=== PATIENT | male | born 1950 | race Caucasian/White ===

== ENCOUNTER 2019-03-25 21:34 | Inpatient (IN) | payer MEDICARE, OTHER ==
--- NOTE | 2019-03-25 21:56 | RAD ---
Exam: Chest one view: HISTORY: Dyspnea, congestive heart failure, respiratory distress COMPARISON: 03/25/2019, 7:42 PM study. There is again noted be cardiomegaly with extensive bilateral interstitial and alveolar opacity wright es throughout both lungs. Findings are certainly consistent with that of a bilateral pneumonia and/or asymmetric pulmonary edema. IMPRESSION: Extensive bilateral interstitial and alveolar opacity changes evidence for bilateral pneumonia and/or asymmetric pulmonary edema. Stable from earlier study this evening. Minimal cardiomegaly. Continued short-term follow-up
[2019-03-25] MEDS ORDERED: Furosemide 40 MG/4 ML VIAL ONE (22:10)
[2019-03-25 22:45] LABS: Alcohol Less than 10 mg/dL (Less than 10); Salicylate Less than 8.0 mg/dL (15.0-30.0)
[2019-03-26 00:04] LABS: Troponin I 1.424 ng/mL (< 0.028)
[2019-03-26] MEDS ORDERED: Ondansetron PF 4 MG/2 ML Vial IVP PRN (00:14)
[2019-03-26] MEDS ORDERED: Ondansetron ODT 4 MG TAB SL PRN (00:14)
[2019-03-26] MEDS ORDERED: Acetaminophen 325 MG TAB PO PRN ×2 (00:14→00:28)
[2019-03-26] MEDS ORDERED: Bisacodyl 10 MG SUPP PR PRN (00:28)
[2019-03-26] MEDS ORDERED: Guaifenesin DM 100-10/5 ML UDCUP PO PRN (00:28)
[2019-03-26] MEDS ORDERED: Senokot S 8.6-50 MG TAB PO PRN (00:28)
[2019-03-26] MEDS ORDERED: Azithromycin 500 MG in Sodium Chloride 0.9% 250 ML 250 ML IVPB SCH (01:00)
[2019-03-26 01:26] LABS: #Lymphocytes 0.6 thou/uL (1.20-3.40); #Monocytes 0.5 thou/uL (0.11-0.59); #Neutrophils 15.7 thou/uL (1.40-6.50); %Basophils 0.3 % (0.0-1.0); %Eosinophils 0.1 % (0.0-10.0); %Lymphocytes 3.3 % (21.0-51.0); %Monocytes 2.7 % (0.0-10.0); %Neutrophils 93.6 % (42.0-75.0); Hemoglobin 12.4 g/dL (14.0-18.0); Mean Corpuscular HGB CONC 33.1 g/dL (32.0-36.0); Mean Corpuscular Hemoglobin 31.3 pg (27.0-31.0); Mean Corpuscular Volume 94.7 fL (78.0-98.0); Mean Platelet Volume 6.4 fL (7.4-10.4); Platelet Count 454 thou/uL (130-400); RBC Distribution Width 11.9 % (11.5-14.5); Red Blood Cell (RBC) Count 3.94 mill/uL (4.70-6.10); White Blood Cell (WBC) Count 16.8 thou/uL (4.8-10.8)
[2019-03-26 01:54] LABS: Anion Gap 16 mmol/L (10-20); BUN (Urea Nitrogen) 11 mg/dL (8.4-25.7); Calc. Creatinine Clearance 85 mL/min (70-130); Calcium 8.9 mg/dL (7.8-10.44); Carbon Dioxide 20 mmol/L (23-31); Cardiac Risk 4.5 (Less than 4.5); Chloride 103 mmol/L (98-107); Cholesterol 109 mg/dl (< 200 Desired); Estimated GFR-MDRD 74; Glucose 134 mg/dL (80-115); HDL Cholesterol 24 mg/dL (>60 Neg Risk); LDL Cholesterol, Calculated 70 mg/dL; Potassium 3.8 mmol/L (3.5-5.1); Sodium 135 mmol/L (136-145); Triglycerides 74 mg/dL (Less than 150)
[2019-03-26 01:56] LABS: Troponin I 2.991 ng/mL (< 0.028)
--- NOTE | 2019-03-26 04:05 | HP ---
REASON FOR ADMISSION: Acute respiratory failure with hypoxia, new onset CHF exacerbation, pneumonia, sepsis. HISTORY OF PRESENTING ILLNESS: Patient gives history of cough with clear expectoration from last 2 weeks. This got worse with severe shortness of breath from last 4 hours prior to arrival to the ER. He apparently became blue at home due to severe coughing spells and shortness of breath. The patient had gone for camping at [place] and was living in a cabin for four days, came back yesterday afternoon. He had gone fishing. He had a followup appointment that was set up to see Dr. Spencer on Thursday and patient was awaiting to see him then. The mentions that patient is adamant about going and seeing his primary care doctor earlier. Had some chest pressure as well when the shortness of breath came on. He says that his shortness of breath is coming on with minimal exertion, even to ambulate inside the room now. On arrival here, patient was saturating at 54% on room air and had to be placed on BiPAP. Initial x-ray showed florid pulmonary vascular congestion and possible pneumonia on his x-ray. He had a fever of 100.9 degrees on arrival. 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 No prior history of either acute DC or heart failure per patient. PAST MEDICAL AND SURGICAL HISTORY: Coronary artery disease, prior CABG done in [place] in 2006, carotid endarterectomy, dyslipidemia, hypertension, and appendectomy. CURRENT MEDICATIONS: 1. Atenolol 25 mg p.o. q.p.m. 2. Aggrenox 25/200 mg one capsule twice daily. 3. Atorvastatin 80 mg p.o. q.p.m. 4. Zetia 10 mg p.o. q.p.m. 5. Multivitamin one tablet once daily. 6. Fish oil 1000 mg q.a.m. 7. Ambien 10 mg p.r.n. at bedtime. ALLERGIES: NO KNOWN DRUG ALLERGIES. PERSONAL HISTORY: Quit smoking in 2006, prior to which had smoked 2 packs a day for nearly 40 years. Drinks six packs of beers daily. Does not abuse drugs. Lives with his . FAMILY HISTORY: Mother at the age of 78 from natural causes. Father at the age of 57 years. He has had history of coronary artery disease. CODE STATUS: Full. Power of corporate attorney is his . REVIEW OF SYSTEMS: CONSTITUTIONAL: Negative for weight loss or gain, ability to conduct usual activities. SKIN: Negative for rash, itching. EYES: Negative for double vision, pain. ENT/MOUTH: Negative for nose bleeding, neck stiffness, pain, tenderness. CARDIOVASCULAR: Negative for palpitations, dyspnea on exertion, orthopnea. RESPIRATORY: Negative for shortness of breath, wheezing, cough, hemoptysis, fever or night sweats. GASTROINTESTINAL: Negative for poor appetite, abdominal pain, heartburn, nausea , vomiting, constipation, or diarrhea. GENITOURINARY: Negative for urgency, frequency, dysuria, nocturia. MUSCULOSKELETAL: Negative for pain, swelling. NEUROLOGIC/PSYCHIATRIC: Negative for anxiety, depression. ALLERGY/IMMUNOLOGIC: Negative for skin rash, bleeding tendency. Please see short and difficult for urgency, frequency, dysuria, nocturia. PHYSICAL EXAMINATION: GENERAL: Patient is a 69-year-old male, who is currently in [id number] respiratory distress, on BiPAP. VITAL SIGNS: Blood pressure 148/96; pulse 98 per minute; respiratory rate 26 per minute; temperature 100.9 degrees Fahrenheit; and saturating 95% on BiPAP, was 54% on room air earlier. NECK: He has elevated JVD. HEENT: Eyes; extraocular muscles intact. Pupils reacting to light. Oral cavity, mucous membranes are dry. No exudates or congestion. CARDIOVASCULAR SYSTEM: S1, S2 heard. RESPIRATORY SYSTEM: Air entry 1+ bilateral. Rales plus bilateral. Rhonchi plus bilateral. ABDOMEN: Soft. Bowel sounds heard. No tenderness, rigidity, or guarding. EXTREMITIES: There is 1+ peripheral edema. No calf tenderness. VASCULAR SYSTEM: Peripheral pulses 1+ bilateral. No ischemic ulcerations or gangrene. CENTRAL NERVOUS SYSTEM: No gross focal deficits noted. Patient is alert, awake , oriented, well. PSYCHIATRIC SYSTEM: Patient is a bit anxious, otherwise no hallucinations or delusions. LABORATORY DATA: White count of 16, H and H 12 and 37, platelet count 454, and MCV is 94 with 93% neutrophils. BUN 11, creatinine 1.0, and serum glucose 134. Troponin I peaking up to 2.99. LDL of 70. Chest x-ray done, shows extensive bilateral interstitial and alveolar opacities, possible bilateral pneumonia, worse on left side. Lactic acid 3.8, a repeat was 1.3. Initial BNP was 688. Albumin 3.3. EKG done, shows normal sinus rhythm at 115 beats per minute. There is questionable Q-wave seen in septal and anterior wall leads. CLINICAL IMPRESSION AND PLAN: Patient will be admitted to [facility] for acute new onset congestive heart failure exacerbation, sepsis with likely pneumonia, possible chronic obstructive pulmonary disease exacerbation with prior history of heavy smoking which he quit in 2006. Blood cultures have been obtained in the ER. He will be on Zithromax and ceftriaxone. We will also give him Lasix a total of four doses. We will place him on Coreg 3.125 mg twice daily and lisinopril 2.5 mg daily. Echo with 2D Doppler for LV function. We will continue his Lipitor, Zetia, Aggrenox, and fish oil as before. Cardiology consultation with Dr. Baker is on-call and Pulmonary consultation with Dr. Murguia will be obtained. He will be on clear liquid diet for now. Code status was discussed with him and he is a full code. We will continue to closely monitor him in [facility]. Job ID: [id number] MTDD
[2019-03-26] MEDS: Furosemide 40 MG/4 ML VIAL SLOW IVP SCH ×2 (06:19→13:59)
[2019-03-26] MEDS ORDERED: Enoxaparin Sodium 40 MG/0.4 ML SYRINGE SC SCH (09:00)
[2019-03-26] MEDS ORDERED: Prevnar 13-Val Conj/PF 0.5 ML SYRINGE IM ONE (09:00)
[2019-03-26] MEDS: Lisinopril 2.5 MG TAB PO SCH (10:30)
[2019-03-26] MEDS: Multivitamin W/ Minerals 1 TAB PO SCH (10:31)
[2019-03-26] MEDS: Fish Oil 1,000 MG CAP PO SCH (10:31)
[2019-03-26] MEDS: Carvedilol 3.125 MG TAB PO SCH ×2 (10:31→20:44)
[2019-03-26] MEDS: Aggrenox 200-25mg CAP PO SCH ×2 (10:31→20:44)
[2019-03-26] MEDS: Cefepime 2 GM in Sodium Chloride 0.9% 100 ML IVPB SCH ×2 (10:31→23:25)
[2019-03-26] MEDS: Famotidine 20 MG TAB PO SCH ×2 (10:31→20:45)
[2019-03-26] MEDS ORDERED: Enoxaparin Sodium 100 MG/ML SYRINGE SC SCH (10:45)
[2019-03-26] MEDS: methylPREDNISolone Sod Succ 40 MG VIAL IVP SCH ×3 (13:59→23:25)
--- NOTE | 2019-03-26 16:45 | PDOC.PN ---
- Subjective Encounter Start Date: 03/26/19 Encounter Start Time: 10:15 Subjective: pt up in bed appears sob - Objective Resuscitation Status - Order Detail: 03/26/19 00:22 Resuscitation Status Routine Resuscitation Status: FULL: Full Resuscitation Vital Signs & Weight: Vital Signs (12 hours) Temp Pulse BP Pulse Ox 03/26/19 15:19 98.1 F 03/26/19 14:48 92 L 03/26/19 11:17 97.2 F L 03/26/19 10:30 86 130/75 03/26/19 08:30 95 03/26/19 07:19 97.8 F Weight Admit Weight 192 lb 4 oz Weight 190 lb 6 oz Most Recent Monitor Data Heart Rate from ECG 79 NIBP 113/63 NIBP BP-Mean 79 Respiration from ECG 25 SpO2 90 I&O: 03/25/19 03/26/19 03/27/19 06:59 06:59 06:59 Intake Total 174 Output Total 740 Balance -566 Result Diagrams: 03/26/19 01:17 03/26/19 01:17 Phys Exam - Physical Examination Neck: no nodes, no JVD, supple, full ROM Respiratory: no wheezing, no rales, no rhonchi, wheezing present, clear to auscultation bilateral Cardiovascular: RRR, no significant murmur, no rub, gallop, irregular Gastrointestinal: soft, non-tender, no distention, positive bowel sounds Dx/Plan (1) SOB (shortness of breath) Code(s): R06.02 - SHORTNESS OF BREATH Status: Acute (2) Prolonged QT interval Code(s): R94.31 - ABNORMAL ELECTROCARDIOGRAM [ECG] [EKG] Status: Acute (3) Elevated troponin Code(s): R74.8 - ABNORMAL LEVELS OF OTHER SERUM ENZYMES Status: Acute - Plan pt on abx, will discontinue azithromycin pt's qtc worsening -: will check magnesium and repeat ekg -: will put pt on lovonox and consult cardio -: echo ef of 45-50% no previous echo for comparision * . Review of Systems - Review of Systems Respiratory: negative: Cough, Dry, Shortness of Breath, Hemoptysis, SOB with Excertion, Pleuritic Pain, Sputum, Wheezing Cardiovascular: negative: chest pain, palpitations, orthopnea, paroxysmal nocturnal dyspnea, edema, light headedness, other Gastrointestinal: negative: Nausea, Vomiting, Abdominal Pain, Diarrhea, Constipation, Melena, Hematochezia, Other - Medications/Allergies Allergies/Adverse Reactions: Allergies Allergy/AdvReac Type Severity Reaction Status Date / Time No Known Allergies Allergy Verified 05/05/16 10:21 Medications: Current Medications Acetaminophen (Tylenol) 650 mg PO Q4H PRN PRN Reason: Headache/Fever/Mild Pain (1-3) Atorvastatin Calcium (Lipitor) 80 mg PO QPM [facility] Bisacodyl (Dulcolax) 10 mg [place] DAILYPRN PRN PRN Reason: Constipation Carvedilol (Coreg) 3.125 mg PO BID [facility] Last Admin: 03/26/19 10:31 Dose: 3.125 mg Dipyridamole/Aspirin (Aggrenox) 1 cap PO BID [facility] Last Admin: 03/26/19 10:31 Dose: 1 cap Ezetimibe (Zetia) 10 mg PO QPM [facility] Enoxaparin Sodium (Lovenox) 90 mg SC 0900,2100 [facility] Famotidine (Pepcid) 20 mg PO BID [facility] Last Admin: 03/26/19 10:31 Dose: 20 mg Fish Oil (Fish Oil) 1,000 mg PO QAM [facility] Last Admin: 03/26/19 10:31 Dose: 1,000 mg Furosemide (Lasix) 40 mg SLOW IVP 0600,1400 [facility] Stop: 03/27/19 06:01 Last Admin: 03/26/19 13:59 Dose: 40 mg Guaifenesin/Dextromethorphan (Robitussin Dm) 15 ml PO Q4H PRN PRN Reason: Cough Cefepime HCl 2 gm/ Sodium (Chloride) 100 mls @ 200 mls/hr IVPB 1100,2300 [facility] Last Admin: 03/26/19 10:31 Dose: 100 mls Iron/Minerals/Multivitamins (Theragran M) 1 tab PO QAM [facility] Last Admin: 03/26/19 10:31 Dose: 1 tab Lisinopril (Zestril) 2.5 mg PO DAILY [facility] Last Admin: 03/26/19 10:30 Dose: 2.5 mg Methylprednisolone Sodium Succinate (Solu-Medrol) 40 mg IVP Q6HR [facility] Last Admin: 03/26/19 13:59 Dose: 40 mg Senna/Docusate Sodium (Senokot S) 2 tab PO BID PRN PRN Reason: Constipation Sodium Chloride (Flush - Normal Saline) 10 ml IVF Q12HR [facility] Last Admin: 03/26/19 10:32 Dose: 10 ml Sodium Chloride (Flush - Normal Saline) 10 ml IVF PRN PRN PRN Reason: Saline Flush
--- NOTE | 2019-03-26 18:22 | CON ---
DATE OF CONSULTATION: 03/26/2019 PRIMARY LINUX ADMIN: Júnior Finley MD. REASON FOR CONSULTATION: Heart failure. HISTORY OF PRESENT ILLNESS: Mr. Lewis is a pleasant 69-year-old white gentleman, who comes to the hospital for shortness of breath and cough productive of brownish zarate sputum. He has had subjective fevers as well. He has noticed worsening shortness of breath. He saw Dr. Finley a week before last. He has had him scheduled for an echo and a stress in the next few days. He decided to come into the hospital as his shortness of breath got significantly worse, had a fever of 100.9, so he was admitted for this. Chest x-ray shows large bilateral alveolar infiltrates, which is either pneumonia versus CHF. Cardiology has been consulted for this. PAST MEDICAL HISTORY: 1. History of coronary artery disease with CABG in [facility] in 2006. 2. Peripheral vascular disease with carotid endarterectomy a few years ago with Dr. Enciso. 3. Hyperlipidemia. 4. Hypertension. PAST SURGICAL HISTORY: 1. CABG as above. 2. Carotid endarterectomy. 3. Appendectomy. OUTPATIENT MEDICATIONS: 1. Atenolol 25 mg q.p.m. 2. Aggrenox 25/200 twice a day. 3. Atorvastatin 80 mg q.p.m. 4. Zetia 10 mg q.p.m. 5. Multivitamin daily. 6. Fish oil 1000 mg q.a.m. 7. Ambien 10 mg p.r.n. at bedtime. ALLERGIES: NO KNOWN DRUG ALLERGIES. SOCIAL HISTORY: Quit smoking in 2006 after his bypass, before that, it was 2 packs a day for 40 years. Drinks daily about a 6-pack. No drug use. FAMILY HISTORY: Noncontributory. REVIEW OF SYSTEMS: A 12-point review of systems was done and was all negative unless stated in the history of present illness. PHYSICAL EXAMINATION: VITAL SIGNS: Temperature 97.2, pulse 88, respiratory rate 21, saturating 95% on high-flow oxygen, blood pressure 106/65. GENERAL: Awake, alert, and oriented x3. No distress. HEENT: Normocephalic and atraumatic. NECK: Supple. LUNGS: Clear. CARDIOVASCULAR: S1, S2. No S3 or S4. No murmurs. ABDOMEN: Soft. Positive bowel sounds. EXTREMITIES: No edema. SKIN: Warm and dry. LABORATORY DATA: Laboratory work was reviewed. White count of 16, hemoglobin 12, hematocrit 37, platelet count 454. Chemistry with a sodium of 135, potassium 3.8, BUN 11, creatinine 1, GFR of 74, lactic acid 1.3, calcium is 8.9. Troponin is positive at 1.4, second with 2.9. Cholesterol total of 109, LDL of 70, HDL of 24. Free T4 is 2.89. TSH was 0.22. Echocardiogram was reviewed. EF at about 45% to 50%, which is mildly reduced, but he has diastolic heart failure. ASSESSMENT/PLAN: 1. Acute on chronic systolic and diastolic heart failure, appears significantly improved. 2. Bilateral pulmonary infiltrates suggestive of pneumonia as well. This would be more consistent given his history of fevers and cough productive of grayish sputum. 3. Non-ST elevation myocardial infarction type 2 most likely. 4. Coronary artery disease, status post coronary artery bypass grafting in 2006. PLAN: 1. Agree with continuing diuresis. 2. Would give full anticoagulation given his elevated troponin and history of coronary artery disease. Agree with continue full-dose Lovenox for now. 3. No plan for heart catheterization at this time. He may need one once he is more stable from the pneumonia standpoint. Thank you for letting me to participate in the care of your patient. We will continue to follow. Job ID: [id number]
[2019-03-26] MEDS ORDERED: cefTRIAXone\\ROCEPHIN 1 GM in Sodium Chloride 0.9% 100 ML IVPB SCH (20:00)
[2019-03-26] MEDS: Enoxaparin Sodium 100 MG/ML SYRINGE SC SCH (20:43)
[2019-03-26] MEDS: Ezetimibe 10 MG TAB PO SCH (20:44)
[2019-03-26] MEDS: Atorvastatin Calcium 40 MG TAB PO SCH (20:44)
[2019-03-26] MEDS ORDERED: Enoxaparin Sodium 80 MG/0.8 ML SYRINGE SC SCH (21:00)
[2019-03-27] MEDS: methylPREDNISolone Sod Succ 40 MG VIAL IVP SCH (05:37)
[2019-03-27] MEDS: Furosemide 40 MG/4 ML VIAL SLOW IVP SCH (05:37)
[2019-03-27] MEDS ORDERED: Azithromycin 500 MG in Sodium Chloride 0.9% 250 ML 250 ML IVPB SCH (07:45)
[2019-03-27] MEDS: Carvedilol 3.125 MG TAB PO SCH ×2 (09:57→21:35)
[2019-03-27] MEDS: Aggrenox 200-25mg CAP PO SCH ×2 (09:57→20:09)
[2019-03-27] MEDS: Enoxaparin Sodium 100 MG/ML SYRINGE SC SCH ×2 (09:58→20:07)
[2019-03-27] MEDS: Famotidine 20 MG TAB PO SCH ×2 (09:58→20:09)
[2019-03-27] MEDS: Lisinopril 2.5 MG TAB PO SCH (09:58)
[2019-03-27] MEDS: Fish Oil 1,000 MG CAP PO SCH (09:58)
[2019-03-27] MEDS: Multivitamin W/ Minerals 1 TAB PO SCH (09:58)
--- NOTE | 2019-03-27 10:05 | RAD ---
PORTABLE CHEST: Date: 03/27/19 COMPARISON: 03/25/19 study. HISTORY: Difficulty breathing. FINDINGS: Heart size is enlarged. Postop sternotomy changes are present. Parenchymal lung changes are stable. IMPRESSION: Stable exam. POS: [facility]
--- NOTE | 2019-03-27 10:19 | PRG ---
DATE OF SERVICE: 03/27/2019 SUBJECTIVE: Aniket Lewis is a 69-year-old gentleman. This morning, he is better. X-ray still shows diffuse pulmonary infiltrates, high-flow 30 L. OBJECTIVE: VITAL SIGNS: His sats are like 90%, pulse 86, temperature 97, and blood pressure 130/75. CHEST: Bilateral crackles. CARDIAC: Normal S1-S2. No gallops. ABDOMEN: No masses. IMPRESSION: Respiratory failure, congestive heart failure, and pneumonia. PLAN: Continue antibiotics, neb treatments, and steroids. I will follow. Job ID: [id number]
--- NOTE | 2019-03-27 11:32 | PDOC.CTH ---
Cardiology Progress Note - Subjective No new issues. Still needing high flow oxygen. - Objective Vital Signs Temp Pulse Pulse Pulse BP BP BP 03/27/19 11:04 96.9 F L 03/27/19 10:29 83 87 105/70 118/68 03/27/19 09:58 86 130/75 03/27/19 07:24 96.6 F L 03/27/19 04:00 97.3 F L 03/27/19 02:18 03/26/19 23:31 98.4 F Pulse Ox Pulse Ox Pulse Ox 03/27/19 11:04 03/27/19 10:29 96 87 L 03/27/19 09:58 03/27/19 07:24 03/27/19 04:00 03/27/19 02:18 90 L 03/26/19 23:31 Admit Weight 192 lb 4 oz Weight 187 lb 6 oz 03/26/19 03/27/19 03/28/19 06:59 06:59 06:59 Intake Total 174 1146 Output Total 740 2150 500 Balance -560 -4230 -500 - Physical Examination General/Neuro: alert & oriented x3, NAD Neck: no JVD present Lungs: unlabored respirations Heart: RRR Abdomen: NT/ND Extremities: other: (no edema) - Telemetry Telemetry Rhythm: NSR - Labs Result Diagrams: 03/26/19 01:17 03/26/19 01:17 Troponin/CKMB Troponin I 2.991 ng/mL (< 0.028) H* 03/26/19 01:17 - Assessment/Plan 1. Acute on chornic systolic heart failure. 2. Pneumonia 3. Type 2 IA NSTEMI, demand ischemia 4. CAD 5. CABG in 2006 PLAN: - Abx per primary team - Continue full anticoagulation for a minimum of 48 hrs - Will need further risk stratification once stable from pneumonia standpoint. - Dr. Finley will evaluate tomorrow.
[2019-03-27] MEDS: Cefepime 2 GM in Sodium Chloride 0.9% 100 ML IVPB SCH ×2 (12:54→23:33)
--- NOTE | 2019-03-27 12:56 | PDOC.PN ---
- Subjective Encounter Start Date: 03/27/19 Encounter Start Time: 10:30 Subjective: pt up in chair feels better - Objective Resuscitation Status - Order Detail: 03/26/19 00:22 Resuscitation Status Routine Resuscitation Status: FULL: Full Resuscitation Vital Signs & Weight: Vital Signs (12 hours) Temp Pulse Pulse Pulse BP BP BP 03/27/19 11:04 96.9 F L 03/27/19 10:29 83 87 105/70 118/68 03/27/19 09:58 86 130/75 03/27/19 07:24 96.6 F L 03/27/19 04:00 97.3 F L 03/27/19 02:18 Pulse Ox Pulse Ox Pulse Ox 03/27/19 11:04 03/27/19 10:29 96 87 L 03/27/19 09:58 03/27/19 07:24 03/27/19 04:00 03/27/19 02:18 90 L Weight Admit Weight 192 lb 4 oz Weight 187 lb 6 oz Most Recent Monitor Data Heart Rate from ECG 85 NIBP 91/66 NIBP BP-Mean 74 Respiration from ECG 23 SpO2 91 I&O: 03/26/19 03/27/19 03/28/19 06:59 06:59 06:59 Intake Total 174 1146 Output Total 740 2300 500 Balance -566 -1004 -500 Result Diagrams: 03/26/19 01:17 03/26/19 01:17 Phys Exam - Physical Examination Neck: no nodes, no JVD, supple, full ROM Respiratory: no wheezing, no rales, no rhonchi, wheezing present, clear to auscultation bilateral Cardiovascular: RRR, no significant murmur, no rub, gallop, irregular Gastrointestinal: soft, non-tender, no distention, positive bowel sounds Dx/Plan (1) Acute respiratory failure with hypoxia Code(s): J96.01 - ACUTE RESPIRATORY FAILURE WITH HYPOXIA Status: Acute (2) Pneumonia Code(s): J18.9 - PNEUMONIA, UNSPECIFIED ORGANISM Status: Acute (3) Prolonged QT interval Code(s): R94.31 - ABNORMAL ELECTROCARDIOGRAM [ECG] [EKG] Status: Acute (4) Elevated troponin Code(s): R74.8 - ABNORMAL LEVELS OF OTHER SERUM ENZYMES Status: Acute - Plan will add doxy instead of azithromycin due to prolong qtc -: will continue lovonox. pt still on high flow * . Review of Systems - Review of Systems Respiratory: negative: Cough, Dry, Shortness of Breath, Hemoptysis, SOB with Excertion, Pleuritic Pain, Sputum, Wheezing Cardiovascular: negative: chest pain, palpitations, orthopnea, paroxysmal nocturnal dyspnea, edema, light headedness, other Gastrointestinal: negative: Nausea, Vomiting, Abdominal Pain, Diarrhea, Constipation, Melena, Hematochezia, Other - Medications/Allergies Allergies/Adverse Reactions: Allergies Allergy/AdvReac Type Severity Reaction Status Date / Time No Known Allergies Allergy Verified 05/05/16 10:21 Medications: Current Medications Acetaminophen (Tylenol) 650 mg PO Q4H PRN PRN Reason: Headache/Fever/Mild Pain (1-3) Atorvastatin Calcium (Lipitor) 80 mg PO QPM [facility] Last Admin: 03/26/19 20:44 Dose: 80 mg Bisacodyl (Dulcolax) 10 mg [place] DAILYPRN PRN PRN Reason: Constipation Carvedilol (Coreg) 3.125 mg PO BID [facility] Last Admin: 03/27/19 09:57 Dose: 3.125 mg Dipyridamole/Aspirin (Aggrenox) 1 cap PO BID [facility] Last Admin: 03/27/19 09:57 Dose: 1 cap Ezetimibe (Zetia) 10 mg PO QPM [facility]PL[facility] Last Admin: 03/26/19 20:44 Dose: 10 mg Enoxaparin Sodium (Lovenox) 90 mg SC 0900,2100 [facility]PL[facility] Last Admin: 03/27/19 09:58 Dose: 90 mg Famotidine (Pepcid) 20 mg PO BID [facility] Last Admin: 03/27/19 09:58 Dose: 20 mg Fish Oil (Fish Oil) 1,000 mg PO QAM [facility]PL[facility] Last Admin: 03/27/19 09:58 Dose: 1,000 mg Guaifenesin/Dextromethorphan (Robitussin Dm) 15 ml PO Q4H PRN PRN Reason: Cough Cefepime HCl 2 gm/ Sodium (Chloride) 100 mls @ 200 mls/hr IVPB 1100,2300 [facility]PL[facility] Last Admin: 03/26/19 23:25 Dose: 100 mls Doxycycline Hyclate 100 mg/ (Sodium Chloride) 100 mls @ 100 mls/hr IVPB Q12HR REPLACED [facility] Last Admin: 03/27/19 09:57 Dose: 100 mls Iron/Minerals/Multivitamins (Theragran M) 1 tab PO QAM [facility]PL[facility] Last Admin: 03/27/19 09:58 Dose: 1 tab Lisinopril (Zestril) 2.5 mg PO DAILY [facility] Last Admin: 03/27/19 09:58 Dose: 2.5 mg Methylprednisolone Sodium Succinate (Solu-Medrol) 40 mg IVP BID REPLACED [facility] Senna/Docusate Sodium (Senokot S) 2 tab PO BID PRN PRN Reason: Constipation Sodium Chloride (Flush - Normal Saline) 10 ml IVF Q12HR REPLACED [facility] Last Admin: 03/27/19 09:59 Dose: 10 ml Sodium Chloride (Flush - Normal Saline) 10 ml IVF PRN PRN PRN Reason: Saline Flush Last Admin: 03/26/19 18:17 Dose: 10 ml
[2019-03-27] MEDS: Atorvastatin Calcium 40 MG TAB PO SCH (20:08)
[2019-03-27] MEDS: Ezetimibe 10 MG TAB PO SCH (20:09)
[2019-03-27] MEDS ORDERED: methylPREDNISolone Sod Succ 40 MG VIAL IVP SCH (21:00)
[2019-03-28] MEDS ORDERED: Furosemide 20 MG/2 ML VIAL SLOW IVP SCH (08:30)
--- NOTE | 2019-03-28 08:41 | CON ---
DATE OF CONSULTATION: HISTORY OF PRESENT ILLNESS: He is a 69-year-old gentleman, who has been sick for 3 weeks, yet to see his primary care physician, cough, congestion, low-grade fever. He became progressively more short of breath yesterday and came to the ER, where an x-ray shows diffuse pulmonary infiltrates. A former smoker, 2 pack a day smoker, quit smoking 10 years ago. He says prior to his recent illness, he is able to walk at least couple of blocks without getting markedly short of breath. No prior history of TB or pneumonia. He recently saw his watch commander and apparently some cardiac workup to be initiated. PAST MEDICAL HISTORY: Otherwise, coronary artery disease, peripheral vascular disease, CVA, high cholesterol, hyperlipidemia, and hypertension. PAST SURGICAL HISTORY: Appendix, bypass carotid. HABITS: Alcohol, daily alcohol 5 drinks per day. HOME MEDICATIONS: Includes, 1. Ambien. 2. Vitamin D. 3. [place]. 4. Atenolol. 5. Zetia. 6. Atorvastatin. 7. Aspirin. ALLERGIES: NONE. 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 PHYSICAL EXAMINATION: VITAL SIGNS: His saturations are 90% on 4 L, blood pressure 127/82, pulse 81, respiratory rate 18. He was on BiPAP, which was discontinued. CHEST: Reveals extensive rhonchi and crackles. CARDIAC: ABDOMEN: No masses. LABORATORY DATA: His PO2 on admission was very low. His troponin is elevated. His white count is 16,000, H and H are 12 and 37, platelet count is 454. His white count on admission 21, with a platelet count of 552. His creatinine is 1.7, glucose 189. Lactic acid is elevated. His BNP is elevated at 688. Troponin is 1.42. IMPRESSION: 1. Respiratory failure with bilateral bronchopneumonia, superimposed pneumonia. 2. Coronary artery disease. 3. Former smoker. PLAN: 1. Maxipime and Zithromax. Steroids initiated. Neb treatments. Try high-flow. Obtain sputum for culture. 2. Continue observation in the MICU. This is a consultation note, 70 minutes, 50% direct patient care. Job ID: [id number]
--- NOTE | 2019-03-28 08:42 | RAD ---
CHEST 1 VIEW: History Respiratory distress. Ventilated patient. Difficulty breathing. COMPARISON: 03/27/2019. FINDINGS: Portable upright chest demonstrates sternotomy wires. There is atherosclerosis of the aorta. The he art is enlarged. There are diffuse interstitial and alveolar opacities, unchanged. IMPRESSION: No significant interval change. POS: OFF
[2019-03-28] MEDS: Enoxaparin Sodium 100 MG/ML SYRINGE SC SCH ×2 (08:45→20:02)
[2019-03-28] MEDS: Aggrenox 200-25mg CAP PO SCH ×2 (08:45→20:01)
[2019-03-28] MEDS ORDERED: predniSONE 20 MG TAB PO SCH (08:45)
[2019-03-28] MEDS: Carvedilol 3.125 MG TAB PO SCH ×2 (08:45→20:02)
[2019-03-28] MEDS: Doxycycline 100 MG CAP PO SCH ×2 (08:45→20:01)
[2019-03-28] MEDS: Fish Oil 1,000 MG CAP PO SCH (08:46)
[2019-03-28] MEDS: Lisinopril 2.5 MG TAB PO SCH (08:46)
[2019-03-28] MEDS: Famotidine 20 MG TAB PO SCH ×2 (08:46→20:02)
[2019-03-28] MEDS: Multivitamin W/ Minerals 1 TAB PO SCH (08:46)
[2019-03-28 08:47] LABS: #Lymphocytes 1.5 thou/uL (1.20-3.40); #Monocytes 1.1 thou/uL (0.11-0.59); #Neutrophils 15.9 thou/uL (1.40-6.50); %Eosinophils 0.1 % (0.0-10.0); %Monocytes 5.8 % (0.0-10.0); %Neutrophils 86.1 % (42.0-75.0); Hemoglobin 12.3 g/dL (14.0-18.0); Mean Corpuscular HGB CONC 32.4 g/dL (32.0-36.0); Mean Corpuscular Hemoglobin 31.2 pg (27.0-31.0); Mean Corpuscular Volume 96.1 fL (78.0-98.0); Mean Platelet Volume 6.3 fL (7.4-10.4); Platelet Count 533 thou/uL (130-400); Red Blood Cell (RBC) Count 3.96 mill/uL (4.70-6.10); White Blood Cell (WBC) Count 18.5 thou/uL (4.8-10.8)
[2019-03-28 09:11] LABS: ALT (SGPT) 27 U/L (8-55); AST (SGOT) 37 U/L (5-34); Albumin 2.9 g/dL (3.4-4.8); Alkaline Phosphatase 55 U/L (40-150); Anion Gap 12 mmol/L (10-20); BUN (Urea Nitrogen) 32 mg/dL (8.4-25.7); Bilirubin, Total 0.3 mg/dL (0.2-1.2); Calc. Creatinine Clearance 80 mL/min (70-130); Calcium 9.3 mg/dL (7.8-10.44); Carbon Dioxide 25 mmol/L (23-31); Chloride 105 mmol/L (98-107); Estimated GFR-MDRD 72; Globulin 4.7 g/dL (2.4-3.5); Glucose 152 mg/dL (80-115); Potassium 4.1 mmol/L (3.5-5.1); Protein, Total 7.6 g/dL (5.8-8.1); Sodium 138 mmol/L (136-145)
--- NOTE | 2019-03-28 09:24 | PRG ---
DATE OF SERVICE: 03/28/2019 SUBJECTIVE: Aniket Lewis is a 69-year-old gentleman. This morning, he is awake, alert, and responsive. He is less short of breath. OBJECTIVE: VITAL SIGNS: Sats are still 90 on high-flow at 30 L, temperature 98, blood pressure 118/65, pulse 68, respiratory rate 18. CHEST: Bilateral crackles. CARDIAC: Normal S1 and S2. No gallops. ABDOMEN: No masses. IMPRESSION: Respiratory failure, interstitial pneumonia versus interstitial edema. PLAN: Lasix, lab, p.o. antibiotics, p.o. steroids, and we will follow. Job ID: [id number]
[2019-03-28] MEDS: Cefepime 2 GM in Sodium Chloride 0.9% 100 ML IVPB SCH ×2 (10:36→22:40)
--- NOTE | 2019-03-28 13:36 | PQF ---
MAURA ZHU LIA LEWIS [id number] [facility]- B11 [id number] CLINICAL DOCUMENTATION IMPROVEMENT CLARIFICATION FORM: ICD-10 Updated PLEASE DO AN ADDENDUM TO THE PROGRESS NOTE WITH ANY DOCUMENTATION UPDATES OR ADDITIONS AND CARRY THROUGH TO DC SUMMARY. THANK YOU. DATE: 03/29 ATTN: DR. LIA LEWIS Please exercise your independent, professional judgment in responding to the clarification form. Clinical indicators are provided on the bottom of this form for your review. Please check appropriate box(s) to clarify if the following diagnosis has been ruled in or ruled out: SEPSIS [x ] Ruled in diagnosis [ x ] Continue to treat [ ] Resolved [ ] Ruled out diagnosis [ ] Other diagnosis [ ] Unable to determine In addition, please specify: Present on Admission (POA): [ ]x Yes [ ] No [ ] Unable to determine For continuity of documentation, please document condition throughout progress notes and discharge summary. Thank You. CLINICAL INDICATORS - SIGNS / SYMPTOMS / LABS ER REPORT: PT REPORTS FEVER AT HOME OF 101 LABS: WBC 16.8 LACTIC ACID 3.8 [facility] ...HE HAD A FEVER OF 100.9 ON ARRIVAL. LAB DATA: WBC 16.8, LACTIC ACID 3.8 IMPRESSION: PT WILL BE ADMITTED [facility] FOR ACUTE NEW ONSET CHF EXACERBATION, SEPSIS W/LIKELY PNEUMONIA NO FURTHER MENTION OF SEPSIS TO DATE RISKS: B BRONCHOPNEUMONIA COPD RESPIRATORY FAILURE TREATMENT: IV ANTIBIOTICS (CEFEPIME 03/26-PRESENT); VIBRAMYCIN 03/27) SUPPLEMENTAL OXYGEN (03/26 - PRESENT) THANK YOU! Anne-Marie (This form is maintained as a part of the permanent medical record) 2014 [employer]. All Rights Reserved Anne-Marie Diaz RN, BSN [email or web address] Office: [phone] [facility]
--- NOTE | 2019-03-28 13:43 | PDOC.PN ---
- Subjective Encounter Start Date: 03/28/19 Encounter Start Time: 10:30 Subjective: pt up in bed continues to improve - Objective Resuscitation Status - Order Detail: 03/26/19 00:22 Resuscitation Status Routine Resuscitation Status: FULL: Full Resuscitation Vital Signs & Weight: Vital Signs (12 hours) Temp Pulse Pulse Pulse BP BP BP 03/28/19 11:16 96.5 F L 03/28/19 10:05 85 92 91/52 L 96/58 L 03/28/19 08:46 86 130/75 03/28/19 07:17 98.4 F 03/28/19 04:00 98.4 F 03/28/19 02:28 Pulse Ox Pulse Ox Pulse Ox 03/28/19 11:16 03/28/19 10:05 93 L 94 L 03/28/19 08:46 03/28/19 07:17 03/28/19 04:00 03/28/19 02:28 94 L Weight Admit Weight 192 lb 4 oz Weight 185 lb 6 oz Most Recent Monitor Data Heart Rate from ECG 83 NIBP 104/68 NIBP BP-Mean 80 Respiration from ECG 30 SpO2 97 I&O: 03/27/19 03/28/19 03/29/19 06:59 06:59 06:59 Intake Total 1146 1360 Output Total 2150 1600 Balance -1004 -240 Result Diagrams: 03/28/19 08:37 03/28/19 08:37 Phys Exam - Physical Examination Respiratory: no wheezing, no rales, no rhonchi, clear to auscultation bilateral Cardiovascular: RRR, no significant murmur, no rub, gallop, irregular Gastrointestinal: soft, non-tender, no distention, positive bowel sounds Dx/Plan (1) Acute respiratory failure with hypoxia Code(s): J96.01 - ACUTE RESPIRATORY FAILURE WITH HYPOXIA Status: Acute (2) Pneumonia Code(s): J18.9 - PNEUMONIA, UNSPECIFIED ORGANISM Status: Acute (3) Prolonged QT interval Code(s): R94.31 - ABNORMAL ELECTROCARDIOGRAM [ECG] [EKG] Status: Acute (4) Elevated troponin Code(s): R74.8 - ABNORMAL LEVELS OF OTHER SERUM ENZYMES Status: Acute - Plan pt continues to improve. will continue abx -: pt still on high flow oxygen -: sputum cx normal nisa * . Review of Systems - Review of Systems Respiratory: Cough, Shortness of Breath Cardiovascular: negative: chest pain, palpitations, orthopnea, paroxysmal nocturnal dyspnea, edema, light headedness, other - Medications/Allergies Allergies/Adverse Reactions: Allergies Allergy/AdvReac Type Severity Reaction Status Date / Time No Known Allergies Allergy Verified 05/05/16 10:21 Medications: Current Medications Acetaminophen (Tylenol) 650 mg PO Q4H PRN PRN Reason: Headache/Fever/Mild Pain (1-3) Atorvastatin Calcium (Lipitor) 80 mg PO QPM [facility] Last Admin: 03/27/19 20:08 Dose: 80 mg Bisacodyl (Dulcolax) 10 mg SD DAILYPRN PRN PRN Reason: Constipation Carvedilol (Coreg) 3.125 mg PO BID [facility] Last Admin: 03/28/19 08:45 Dose: 3.125 mg Dipyridamole/Aspirin (Aggrenox) 1 cap PO BID [facility] Last Admin: 03/28/19 08:45 Dose: 1 cap Doxycycline Hyclate (Vibramycin) 100 mg PO BID [facility] Stop: 04/04/19 09:01 Last Admin: 03/28/19 08:45 Dose: 100 mg Ezetimibe (Zetia) 10 mg PO QPM [facility] Last Admin: 03/27/19 20:09 Dose: 10 mg Enoxaparin Sodium (Lovenox) 90 mg SC 0900,2100 [facility] Last Admin: 03/28/19 08:45 Dose: 90 mg Famotidine (Pepcid) 20 mg PO BID [facility] Last Admin: 03/28/19 08:46 Dose: 20 mg Fish Oil (Fish Oil) 1,000 mg PO QAM [facility] Last Admin: 03/28/19 08:46 Dose: 1,000 mg Guaifenesin/Dextromethorphan (Robitussin Dm) 15 ml PO Q4H PRN PRN Reason: Cough Cefepime HCl 2 gm/ Sodium (Chloride) 100 mls @ 200 mls/hr IVPB 1100,2300 [facility] Last Admin: 03/28/19 10:36 Dose: 100 mls Iron/Minerals/Multivitamins (Theragran M) 1 tab PO QAM [facility] Last Admin: 03/28/19 08:46 Dose: 1 tab Lisinopril (Zestril) 2.5 mg PO DAILY [facility] Last Admin: 03/28/19 08:46 Dose: 2.5 mg Prednisone (Prednisone) 40 mg PO QAM-WM [facility] Senna/Docusate Sodium (Senokot S) 2 tab PO BID PRN PRN Reason: Constipation Sodium Chloride (Flush - Normal Saline) 10 ml IVF Q12HR [facility] Last Admin: 03/28/19 08:46 Dose: 10 ml Sodium Chloride (Flush - Normal Saline) 10 ml IVF PRN PRN PRN Reason: Saline Flush Last Admin: 03/26/19 18:17 Dose: 10 ml
[2019-03-28] MEDS: Atorvastatin Calcium 40 MG TAB PO SCH (20:02)
[2019-03-28] MEDS: Ezetimibe 10 MG TAB PO SCH (20:02)
--- NOTE | 2019-03-29 08:13 | RAD ---
XR Chest 1 View Portable History: Difficulty breathing Comparison: Radiograph prior day Findings: Mild improved aeration. No pneumothorax. No significant effusion. Heart size mildly enlarge d. No acute osseous abnormality. Multiple midline sternotomy wires. Impression: Mild improvement lung aeration.
--- NOTE | 2019-03-29 08:34 | PRG ---
DATE OF SERVICE: 03/28/2019 SUBJECTIVE: Mr. Lewis is feeling better. He is less shortness of breath. He is currently on high-flow oxygen. He did come in with shortness of breath, felt to be interstitial pneumonia versus pulmonary edema. His troponin on arrival was 2.9. TSH was 0.22 and BNP of 82. OBJECTIVE: VITAL SIGNS: Current vital signs; blood pressure 104/68, pulse 83, temperature afebrile. LUNGS: Rhonchi, rales bilaterally. HEART: Regular rate and rhythm. ABDOMEN: Soft, nontender, nondistended. EXTREMITIES: No edema. LABORATORY DATA: Current labs include creatinine 1.02, hemoglobin 12.3. IMPRESSION: 1. Shortness of breath. 2. Coronary artery disease. 3. Status post bypass surgery. 4. Interstitial pneumonia versus pulmonary edema. RECOMMENDATIONS: Mr. Lewis did have elevated troponins that may be related to type 2 myocardial infarction. He did have a noninvasive stress study performed in January 2018 that did show ischemia to the inferior wall with normal LVEF. His BNP is also within normal limits. At this point, we will continue conservative therapy. His last echo dated 03/26/2019 showed LVEF 45% to 50%. Once he is improved, we would discuss proceeding with further CV management, medical therapy versus coronary angiography. Job ID: [id number]
--- NOTE | 2019-03-29 08:53 | PDOC.CTH ---
Cardiology Progress Note - Subjective Feels better today. Less SOB - Objective Vital Signs Temp Pulse Ox 03/29/19 07:24 88 L 03/29/19 07:14 97.6 F 03/29/19 03:53 98.0 F 03/29/19 02:16 92 L 03/29/19 00:00 97.4 F L Admit Weight 192 lb 4 oz Weight 186 lb 03/28/19 03/29/19 03/30/19 06:59 06:59 06:59 Intake Total 1360 1450 Output Total 1600 1560 Balance -240 -110 - Physical Examination General/Neuro: alert & oriented x3, NAD Neck: no JVD present Lungs: unlabored respirations Heart: RRR Abdomen: NT/ND, soft Extremities: + femoral B - Labs Result Diagrams: 03/28/19 08:37 03/28/19 08:37 Troponin/CKMB Troponin I 2.991 ng/mL (< 0.028) H* 03/26/19 01:17 - Assessment/Plan CAD Elevated troponin (Type II NV) Pneumonia S/p CABG times four Abx Lasix IV PT and ambulation No further CV recs Consider OP cath if symptoms persist ASA, plavix, BB and statin No further recommendations
--- NOTE | 2019-03-29 08:53 | PRG ---
DATE OF SERVICE: 03/29/2019 SUBJECTIVE: Aniket Lewis is a 69-year-old gentleman, this morning, is awake, alert, responsive, high-flow. OBJECTIVE: VITAL SIGNS: Saturations are 98, pulse 97, blood pressure 131/76, and respirations 18. CHEST: Bilateral crackles. No wheezing. CARDIAC: Normal S1 and S2. No gallops. ABDOMEN: No masses. LABORATORY DATA: White count was 18,000. His BNP was normal yesterday at 82. IMPRESSION: 1. Interstitial pneumonia, culture negative. 2. Respiratory failure. PLAN: Switch over to oral antibiotics, prednisone. CV can downsize his high-flow oxygen. Continue PT, supportive care. We will follow. Job ID: [id number]
[2019-03-29] MEDS: Aggrenox 200-25mg CAP PO SCH ×2 (08:58→20:34)
[2019-03-29] MEDS: predniSONE 20 MG TAB PO SCH (08:58)
[2019-03-29] MEDS: Doxycycline 100 MG CAP PO SCH ×2 (08:59→20:34)
[2019-03-29] MEDS: Enoxaparin Sodium 100 MG/ML SYRINGE SC SCH ×2 (08:59→20:36)
[2019-03-29] MEDS: Carvedilol 3.125 MG TAB PO SCH ×2 (08:59→20:34)
[2019-03-29] MEDS: Multivitamin W/ Minerals 1 TAB PO SCH (09:00)
[2019-03-29] MEDS: Fish Oil 1,000 MG CAP PO SCH (09:00)
[2019-03-29] MEDS: Famotidine 20 MG TAB PO SCH ×2 (09:00→20:34)
[2019-03-29] MEDS: Lisinopril 2.5 MG TAB PO SCH (09:00)
[2019-03-29] MEDS: Cefdinir 300 MG CAP PO SCH ×2 (09:54→20:34)
--- NOTE | 2019-03-29 11:51 | PDOC.PN ---
- Subjective Encounter Start Date: 03/29/19 Encounter Start Time: 10:30 Subjective: pt up in chair feels good - Objective Resuscitation Status - Order Detail: 03/26/19 00:22 Resuscitation Status Routine Resuscitation Status: FULL: Full Resuscitation Vital Signs & Weight: Vital Signs (12 hours) Temp Pulse Pulse Pulse BP BP BP 03/29/19 10:10 72 93 110/74 121/74 03/29/19 09:00 70 106/62 03/29/19 08:00 03/29/19 07:24 03/29/19 07:14 97.6 F 03/29/19 03:53 98.0 F 03/29/19 02:16 03/29/19 00:00 97.4 F L Pulse Ox Pulse Ox Pulse Ox 03/29/19 10:10 91 L 94 L 03/29/19 09:00 03/29/19 08:00 100 03/29/19 07:24 88 L 03/29/19 07:14 03/29/19 03:53 03/29/19 02:16 92 L 03/29/19 00:00 Weight Admit Weight 192 lb 4 oz Weight 186 lb Most Recent Monitor Data Heart Rate from ECG 70 NIBP 126/73 NIBP BP-Mean 90 Respiration from ECG 26 SpO2 98 I&O: 03/28/19 03/29/19 03/30/19 06:59 06:59 06:59 Intake Total 1360 1450 Output Total 1600 1560 Balance -240 -110 Result Diagrams: 03/28/19 08:37 03/28/19 08:37 Phys Exam - Physical Examination Neck: no nodes, no JVD, supple, full ROM Respiratory: no wheezing, no rales, no rhonchi, wheezing present, clear to auscultation bilateral Cardiovascular: RRR, no significant murmur, no rub, gallop, irregular Gastrointestinal: soft, non-tender, no distention, positive bowel sounds Dx/Plan (1) Acute respiratory failure with hypoxia Code(s): J96.01 - ACUTE RESPIRATORY FAILURE WITH HYPOXIA Status: Acute (2) Pneumonia Code(s): J18.9 - PNEUMONIA, UNSPECIFIED ORGANISM Status: Acute (3) Prolonged QT interval Code(s): R94.31 - ABNORMAL ELECTROCARDIOGRAM [ECG] [EKG] Status: Acute (4) Elevated troponin Code(s): R74.8 - ABNORMAL LEVELS OF OTHER SERUM ENZYMES Status: Acute - Plan pt is now down graded to NC, will continue to monitor -: continue abx and steroids.pt on lovonox * . Review of Systems - Review of Systems Respiratory: negative: Cough, Dry, Shortness of Breath, Hemoptysis, SOB with Excertion, Pleuritic Pain, Sputum, Wheezing Cardiovascular: negative: chest pain, palpitations, orthopnea, paroxysmal nocturnal dyspnea, edema, light headedness, other Gastrointestinal: negative: Nausea, Vomiting, Abdominal Pain, Diarrhea, Constipation, Melena, Hematochezia, Other - Medications/Allergies Allergies/Adverse Reactions: Allergies Allergy/AdvReac Type Severity Reaction Status Date / Time No Known Allergies Allergy Verified 05/05/16 10:21 Medications: Current Medications Acetaminophen (Tylenol) 650 mg PO Q4H PRN PRN Reason: Headache/Fever/Mild Pain (1-3) Albuterol/Ipratropium (Duoneb) 3 ml NEB [id number] [facility] Atorvastatin Calcium (Lipitor) 80 mg PO QPM [facility] Last Admin: 03/28/19 20:02 Dose: 80 mg Bisacodyl (Dulcolax) 10 mg AL DAILYPRN PRN PRN Reason: Constipation Carvedilol (Coreg) 3.125 mg PO BID [facility] Last Admin: 03/29/19 08:59 Dose: 3.125 mg Cefdinir (Omnicef) 300 mg PO BID [facility] Stop: 04/01/19 09:01 Last Admin: 03/29/19 09:54 Dose: 300 mg Dipyridamole/Aspirin (Aggrenox) 1 cap PO BID [facility] Last Admin: 03/29/19 08:58 Dose: 1 cap Doxycycline Hyclate (Vibramycin) 100 mg PO BID [facility] Stop: 04/04/19 09:01 Last Admin: 03/29/19 08:59 Dose: 100 mg Ezetimibe (Zetia) 10 mg PO QPM [facility] Last Admin: 03/28/19 20:02 Dose: 10 mg Enoxaparin Sodium (Lovenox) 90 mg SC 0900,2100 [facility] Last Admin: 03/29/19 08:59 Dose: 90 mg Famotidine (Pepcid) 20 mg PO BID [facility] Last Admin: 03/29/19 09:00 Dose: 20 mg Fish Oil (Fish Oil) 1,000 mg PO QAM [facility] Last Admin: 03/29/19 09:00 Dose: 1,000 mg Guaifenesin/Dextromethorphan (Robitussin Dm) 15 ml PO Q4H PRN PRN Reason: Cough Iron/Minerals/Multivitamins (Theragran M) [facility] [place] Last Admin: 03/29/19 09:00 Dose: 1 tab Lisinopril (Zestril) 2.5 mg PO DAILY [facility] Last Admin: 03/29/19 09:00 Dose: 2.5 mg Prednisone (Prednisone) 40 mg PO QA-[facility] Last Admin: 03/29/19 08:58 Dose: 40 mg Senna/Docusate Sodium (Senokot S) 2 tab PO BID PRN PRN Reason: Constipation Sodium Chloride (Flush - Normal Saline) 10 ml IVF Q12HR [facility] Last Admin: 03/29/19 09:02 Dose: 10 ml Sodium Chloride (Flush - Normal Saline) 10 ml IVF PRN PRN PRN Reason: Saline Flush Last Admin: 03/26/19 18:17 Dose: 10 ml
[2019-03-29] MEDS: Atorvastatin Calcium 40 MG TAB PO SCH (20:34)
[2019-03-29] MEDS: Ezetimibe 10 MG TAB PO SCH (20:34)
--- NOTE | 2019-03-30 09:16 | PRG ---
DATE OF SERVICE: 03/30/2019 SUBJECTIVE: This morning, he is better, less short of breath, less cough. OBJECTIVE: VITAL SIGNS: His sats are 93% on 4 L, respiratory rate 21, pulse 69, and blood pressure 121/81. CHEST: Reveals bilateral crackles. CARDIAC: Normal S1 and S2. No gallops. ABDOMEN: No masses. IMPRESSION: Interstitial pneumonia, etiology unclear, improving; respiratory failure. PLAN: He can be transferred out of the MICU. Continue PT, supportive care. Hopefully, he can be discharged home in the next several days once his oxygen saturation improves. Job ID: [id number]
[2019-03-30] MEDS: predniSONE 20 MG TAB PO SCH (09:17)
[2019-03-30] MEDS: Cefdinir 300 MG CAP PO SCH ×2 (09:18→20:55)
[2019-03-30] MEDS: Carvedilol 3.125 MG TAB PO SCH ×2 (09:18→20:55)
[2019-03-30] MEDS: Doxycycline 100 MG CAP PO SCH ×2 (09:18→20:55)
[2019-03-30] MEDS: Enoxaparin Sodium 100 MG/ML SYRINGE SC SCH ×2 (09:18→20:55)
[2019-03-30] MEDS: Aggrenox 200-25mg CAP PO SCH ×2 (09:18→20:55)
[2019-03-30] MEDS: Multivitamin W/ Minerals 1 TAB PO SCH (09:19)
[2019-03-30] MEDS: Famotidine 20 MG TAB PO SCH ×2 (09:19→20:55)
[2019-03-30] MEDS: Fish Oil 1,000 MG CAP PO SCH (09:19)
[2019-03-30] MEDS: Lisinopril 2.5 MG TAB PO SCH (09:19)
--- NOTE | 2019-03-30 12:35 | PDOC.CTH ---
Cardiology Progress Note - Subjective Donig better. Less SOB - Objective Vital Signs Temp Pulse Pulse Pulse Resp BP BP 03/30/19 10:38 97.2 F L 03/30/19 09:57 74 86 129/71 121/81 03/30/19 09:19 73 03/30/19 07:44 69 21 H 03/30/19 07:22 97.2 F L 03/30/19 04:00 98.2 F Pulse Ox Pulse Ox Pulse Ox 03/30/19 10:38 03/30/19 09:57 94 L 94 L 03/30/19 09:19 03/30/19 07:44 95 03/30/19 07:22 03/30/19 04:00 Admit Weight 192 lb 4 oz Weight 185 lb 1.6 oz 03/29/19 03/30/19 03/31/19 06:59 06:59 06:59 Intake Total 1450 1310 Output Total 1560 1200 350 Balance -110 110 -350 - Physical Examination General/Neuro: alert & oriented x3, NAD Neck: no JVD present Lungs: unlabored respirations Heart: RRR Abdomen: NT/ND, soft Extremities: + femoral B - Labs Result Diagrams: 03/28/19 08:37 03/28/19 08:37 Troponin/CKMB Troponin I 2.991 ng/mL (< 0.028) H* 03/26/19 01:17 - Assessment/Plan SOB CAD s/p CABG Type II [place] Continue CV meds Abx and O2 PLan is to fu as outpatient No further recommendations
--- NOTE | 2019-03-30 14:07 | PDOC.PN ---
- Subjective Encounter Start Date: 03/30/19 Encounter Start Time: 10:15 Subjective: pt up in chair feels well - Objective Resuscitation Status - Order Detail: 03/26/19 00:22 Resuscitation Status Routine Resuscitation Status: FULL: Full Resuscitation Vital Signs & Weight: Vital Signs (12 hours) Temp Pulse Pulse Pulse Resp BP BP 03/30/19 13:51 72 20 03/30/19 10:38 97.2 F L 03/30/19 09:57 74 86 129/71 121/81 03/30/19 09:19 73 03/30/19 07:44 69 21 H 03/30/19 07:22 97.2 F L 03/30/19 04:00 98.2 F Pulse Ox Pulse Ox Pulse Ox 03/30/19 13:51 94 L 03/30/19 10:38 03/30/19 09:57 94 L 94 L 03/30/19 09:19 03/30/19 07:44 95 03/30/19 07:22 03/30/19 04:00 Weight Admit Weight 192 lb 4 oz Weight 185 lb 1.6 oz Most Recent Monitor Data Heart Rate from ECG 73 NIBP 157/83 NIBP BP-Mean 107 Respiration from ECG 14 SpO2 84 I&O: 03/29/19 03/30/19 03/31/19 06:59 06:59 06:59 Intake Total 1450 1310 Output Total 1560 1200 350 Balance -110 110 -350 Result Diagrams: 03/28/19 08:37 03/28/19 08:37 Phys Exam - Physical Examination Neck: no nodes, no JVD, supple, full ROM Respiratory: no wheezing, no rales, no rhonchi, wheezing present, clear to auscultation bilateral Cardiovascular: RRR, no significant murmur, no rub, gallop, irregular Gastrointestinal: soft, non-tender, no distention, positive bowel sounds Dx/Plan (1) Acute respiratory failure with hypoxia Code(s): J96.01 - ACUTE RESPIRATORY FAILURE WITH HYPOXIA Status: Acute (2) Pneumonia Code(s): J18.9 - PNEUMONIA, UNSPECIFIED ORGANISM Status: Acute (3) Prolonged QT interval Code(s): R94.31 - ABNORMAL ELECTROCARDIOGRAM [ECG] [EKG] Status: Acute (4) Elevated troponin Code(s): R74.8 - ABNORMAL LEVELS OF OTHER SERUM ENZYMES Status: Acute - Plan pt feels well. will continue abx -: pt still on lovonox, will ask cardiology if can discontinue * . Review of Systems - Review of Systems Respiratory: negative: Cough, Dry, Shortness of Breath, Hemoptysis, SOB with Excertion, Pleuritic Pain, Sputum, Wheezing Cardiovascular: negative: chest pain, palpitations, orthopnea, paroxysmal nocturnal dyspnea, edema, light headedness, other Gastrointestinal: negative: Nausea, Vomiting, Abdominal Pain, Diarrhea, Constipation, Melena, Hematochezia, Other - Medications/Allergies Allergies/Adverse Reactions: Allergies Allergy/AdvReac Type Severity Reaction Status Date / Time No Known Allergies Allergy Verified 05/05/16 10:21 Medications: Current Medications Acetaminophen (Tylenol) 650 mg PO Q4H PRN PRN Reason: Headache/Fever/Mild Pain (1-3) Albuterol/Ipratropium (Duoneb) 3 ml NEB [id number] [facility] Last Admin: 03/30/19 13:51 Dose: 3 ml Atorvastatin Calcium (Lipitor) 80 mg PO QPM [facility] Last Admin: 03/29/19 20:34 Dose: 80 mg Bisacodyl (Dulcolax) [address] DAILYPRN PRN PRN Reason: Constipation Carvedilol (Coreg) 3.125 mg PO BID [facility] Last Admin: 03/30/19 09:18 Dose: 3.125 mg Cefdinir (Omnicef) 300 mg PO BID [facility] Stop: 04/01/19 09:01 Last Admin: 03/30/19 09:18 Dose: 300 mg Dipyridamole/Aspirin (Aggrenox) 1 cap PO BID [facility] Last Admin: 03/30/19 09:18 Dose: 1 cap Doxycycline Hyclate (Vibramycin) 100 mg PO BID [facility] Stop: 04/04/19 09:01 Last Admin: 03/30/19 09:18 Dose: 100 mg Ezetimibe (Zetia) 10 mg PO QPM [facility] Last Admin: 03/29/19 20:34 Dose: 10 mg Enoxaparin Sodium (Lovenox) 90 mg SC 0900,2100 [facility] Last Admin: 03/30/19 09:18 Dose: 90 mg Famotidine (Pepcid) 20 mg PO BID [facility] Last Admin: 07/03/19 09:19 Dose: 20 mg Fish Oil (Fish Oil) [facility] Last Admin: 03/30/19 09:19 Dose: 1,000 mg Guaifenesin/Dextromethorphan (Robitussin Dm) 15 ml PO Q4H PRN PRN Reason: Cough Iron/Minerals/Multivitamins (Theragran M) [facility] Last Admin: 03/30/19 09:19 Dose: 1 tab Lisinopril (Zestril) 2.5 mg PO DAILY [facility] Last Admin: 03/30/19 09:19 Dose: 2.5 mg Prednisone (Prednisone) 40 mg PO QA-[facility] Last Admin: 03/30/19 09:17 Dose: 40 mg Senna/Docusate Sodium (Senokot S) 2 tab PO BID PRN PRN Reason: Constipation Sodium Chloride (Flush - Normal Saline) 10 ml IVF Q12HR [facility] Last Admin: 03/30/19 09:20 Dose: 10 ml Sodium Chloride (Flush - Normal Saline) 10 ml IVF PRN PRN PRN Reason: Saline Flush Last Admin: 03/26/19 18:17 Dose: 10 ml
[2019-03-30] MEDS: Atorvastatin Calcium 40 MG TAB PO SCH (20:55)
[2019-03-30] MEDS: Ezetimibe 10 MG TAB PO SCH (20:55)
[2019-03-31 06:33] LABS: #Eosinphils 0.4 thou/uL (0.0-0.7); #Lymphocytes 2.7 thou/uL (1.20-3.40); #Monocytes 1.2 thou/uL (0.11-0.59); #Neutrophils 7.9 thou/uL (1.40-6.50); %Basophils 0.1 % (0.0-1.0); %Eosinophils 3.6 % (0.0-10.0); %Lymphocytes 22.2 % (21.0-51.0); %Monocytes 9.9 % (0.0-10.0); %Neutrophils 64.2 % (42.0-75.0); Hemoglobin 13.1 g/dL (14.0-18.0); Mean Corpuscular HGB CONC 32.5 g/dL (32.0-36.0); Mean Corpuscular Hemoglobin 31.1 pg (27.0-31.0); Mean Corpuscular Volume 95.6 fL (78.0-98.0); Mean Platelet Volume 6.4 fL (7.4-10.4); Platelet Count 519 thou/uL (130-400); Red Blood Cell (RBC) Count 4.21 mill/uL (4.70-6.10); White Blood Cell (WBC) Count 12.2 thou/uL (4.8-10.8)
[2019-03-31 06:50] LABS: Anion Gap 11 mmol/L (10-20); BUN (Urea Nitrogen) 20 mg/dL (8.4-25.7); Calc. Creatinine Clearance 116 mL/min (70-130); Calcium 8.6 mg/dL (7.8-10.44); Carbon Dioxide 23 mmol/L (23-31); Chloride 105 mmol/L (98-107); Estimated GFR-MDRD Greater than 90; Glucose 80 mg/dL (80-115); Potassium 3.8 mmol/L (3.5-5.1); Sodium 135 mmol/L (136-145)
[2019-03-31] MEDS: Aggrenox 200-25mg CAP PO SCH ×2 (09:01→21:31)
[2019-03-31] MEDS: Carvedilol 3.125 MG TAB PO SCH ×2 (09:01→21:31)
[2019-03-31] MEDS: predniSONE 20 MG TAB PO SCH (09:01)
[2019-03-31] MEDS: Doxycycline 100 MG CAP PO SCH ×2 (09:02→21:30)
[2019-03-31] MEDS: Cefdinir 300 MG CAP PO SCH ×2 (09:02→21:31)
[2019-03-31] MEDS: Enoxaparin Sodium 100 MG/ML SYRINGE SC SCH ×2 (09:02→21:32)
[2019-03-31] MEDS: Famotidine 20 MG TAB PO SCH ×2 (09:02→21:31)
[2019-03-31] MEDS: Lisinopril 2.5 MG TAB PO SCH (09:03)
[2019-03-31] MEDS: Fish Oil 1,000 MG CAP PO SCH (09:03)
[2019-03-31] MEDS: Multivitamin W/ Minerals 1 TAB PO SCH (09:03)
--- NOTE | 2019-03-31 10:56 | PRG ---
DATE OF SERVICE: 03/31/2019 SUBJECTIVE: This morning, he is awake, alert, responsive. OBJECTIVE: VITAL SIGNS: Sats are 98% on room air, blood pressure 129/85, respiratory rate 18, and pulse 82. CHEST: No wheezing. CARDIAC: Normal S1, S2. No gallops. ABDOMEN: Soft. No masses. IMPRESSION: Interstitial pneumonia. I doubt he has congestive heart failure. EF is normal. BNP is normal. PLAN: Check O2 saturation on room air. Continue steroids. Continue antibiotics. Hopefully, he can be discharged home in the next day or 2. Job ID: [id number]
--- NOTE | 2019-03-31 15:11 | PDOC.PN ---
- Subjective Encounter Start Date: 03/31/19 Encounter Start Time: 10:30 Subjective: pt up in bed no complains - Objective Resuscitation Status - Order Detail: 03/26/19 00:22 Resuscitation Status Routine Resuscitation Status: FULL: Full Resuscitation Vital Signs & Weight: Vital Signs (12 hours) Temp Pulse Pulse Pulse Resp BP BP 03/31/19 15:03 98.0 F 03/31/19 12:52 81 18 03/31/19 10:43 97.0 F L 03/31/19 09:11 88 79 128/95 H 03/31/19 09:03 82 121/76 03/31/19 07:57 82 20 03/31/19 07:08 98.2 F 03/31/19 04:40 97.2 F L BP Pulse Ox Pulse Ox Pulse Ox 03/31/19 15:03 03/31/19 12:52 76 L 03/31/19 10:43 03/31/19 09:11 129/85 90 L 91 L 03/31/19 09:03 03/31/19 07:57 92 L 03/31/19 07:08 03/31/19 04:40 Weight Admit Weight 192 lb 4 oz Weight 187 lb 8 oz Most Recent Monitor Data Heart Rate from ECG 83 NIBP 98/67 NIBP BP-Mean 77 Respiration from ECG 20 SpO2 97 I&O: 03/30/19 03/31/19 04/01/19 06:59 06:59 06:59 Intake Total 1310 1510 Output Total 1200 1325 Balance 110 185 Result Diagrams: 03/31/19 06:11 03/31/19 06:11 Phys Exam - Physical Examination Respiratory: no wheezing, no rales, no rhonchi, wheezing present, clear to auscultation bilateral Cardiovascular: RRR, no significant murmur, no rub, gallop, irregular Gastrointestinal: soft, non-tender, no distention, positive bowel sounds Musculoskeletal: no edema, pulses present, edema present Dx/Plan (1) Acute respiratory failure with hypoxia Code(s): J96.01 - ACUTE RESPIRATORY FAILURE WITH HYPOXIA Status: Acute (2) Pneumonia Code(s): J18.9 - PNEUMONIA, UNSPECIFIED ORGANISM Status: Acute (3) Prolonged QT interval Code(s): R94.31 - ABNORMAL ELECTROCARDIOGRAM [ECG] [EKG] Status: Acute (4) Elevated troponin Code(s): R74.8 - ABNORMAL LEVELS OF OTHER SERUM ENZYMES Status: Acute - Plan pt feels well, will continue abx -: will ask if ok to discontinue lovonox * . Review of Systems - Review of Systems Respiratory: negative: Cough, Dry, Shortness of Breath, Hemoptysis, SOB with Excertion, Pleuritic Pain, Sputum, Wheezing Cardiovascular: negative: chest pain, palpitations, orthopnea, paroxysmal nocturnal dyspnea, edema, light headedness, other Gastrointestinal: negative: Nausea, Vomiting, Abdominal Pain, Diarrhea, Constipation, Melena, Hematochezia, Other - Medications/Allergies Allergies/Adverse Reactions: Allergies Allergy/AdvReac Type Severity Reaction Status Date / Time No Known Allergies Allergy Verified 05/05/16 10:21 Medications: Current Medications Acetaminophen (Tylenol) 650 mg PO Q4H PRN PRN Reason: Headache/Fever/Mild Pain (1-3) Albuterol/Ipratropium (Duoneb) 3 ml NEB [id number] [facility] Last Admin: 03/31/19 12:52 Dose: 3 ml Atorvastatin Calcium (Lipitor) 80 mg PO QPM [facility] Last Admin: 03/30/19 20:55 Dose: 80 mg Bisacodyl (Dulcolax) 10 mg [place] DAILYPRN PRN PRN Reason: Constipation Carvedilol (Coreg) 3.125 mg PO BID [facility] Last Admin: 03/31/19 09:01 Dose: 3.125 mg Cefdinir (Omnicef) 300 mg PO BID [facility] Stop: 04/01/19 09:01 Last Admin: 03/31/19 09:02 Dose: 300 mg Dipyridamole/Aspirin (Aggrenox) 1 cap PO BID [facility] Last Admin: 03/31/19 09:01 Dose: 1 cap Doxycycline Hyclate (Vibramycin) 100 mg PO BID [facility] Stop: 04/04/19 09:01 Last Admin: 03/31/19 09:02 Dose: 100 mg Ezetimibe (Zetia) 10 mg PO QPM [facility] Last Admin: 03/30/19 20:55 Dose: 10 mg Enoxaparin Sodium (Lovenox) 90 mg SC 0900,2100 [facility] Last Admin: 03/31/19 09:02 Dose: 90 mg Famotidine (Pepcid) 20 mg PO BID [facility] Last Admin: 03/31/19 09:02 Dose: 20 mg Fish Oil (Fish Oil) 1,000 mg PO QAM [facility] Last Admin: 03/31/19 09:03 Dose: 1,000 mg Guaifenesin/Dextromethorphan (Robitussin Dm) 15 ml PO Q4H PRN PRN Reason: Cough Iron/Minerals/Multivitamins (Theragran M) 1 tab PO QAM [facility] Last Admin: 03/31/19 09:03 Dose: 1 tab Lisinopril (Zestril) 2.5 mg PO DAILY [facility] Last Admin: 03/31/19 09:03 Dose: 2.5 mg Prednisone (Prednisone) 20 mg PO QA-[facility] Senna/Docusate Sodium (Senokot S) 2 tab PO BID PRN PRN Reason: Constipation Sodium Chloride (Flush - Normal Saline) 10 ml IVF Q12HR [facility] Last Admin: 03/31/19 09:09 Dose: 10 ml Sodium Chloride (Flush - Normal Saline) 10 ml IVF PRN PRN PRN Reason: Saline Flush Last Admin: 03/26/19 18:17 Dose: 10 ml
[2019-03-31] MEDS: Atorvastatin Calcium 40 MG TAB PO SCH (21:31)
[2019-03-31] MEDS: Ezetimibe 10 MG TAB PO SCH (21:31)
[2019-04-01] MEDS: predniSONE 20 MG TAB PO SCH (09:21)
[2019-04-01] MEDS: Carvedilol 3.125 MG TAB PO SCH ×2 (09:22→21:24)
[2019-04-01] MEDS: Enoxaparin Sodium 100 MG/ML SYRINGE SC SCH ×2 (09:22→21:22)
[2019-04-01] MEDS: Doxycycline 100 MG CAP PO SCH ×2 (09:22→21:24)
[2019-04-01] MEDS: Cefdinir 300 MG CAP PO SCH (09:22)
[2019-04-01] MEDS: Aggrenox 200-25mg CAP PO SCH ×2 (09:22→21:23)
[2019-04-01] MEDS: Fish Oil 1,000 MG CAP PO SCH (09:23)
[2019-04-01] MEDS: Famotidine 20 MG TAB PO SCH ×2 (09:23→21:24)
[2019-04-01] MEDS: Multivitamin W/ Minerals 1 TAB PO SCH (09:23)
[2019-04-01] MEDS: Lisinopril 2.5 MG TAB PO SCH (09:23)
--- NOTE | 2019-04-01 15:05 | PDOC.PN ---
- Subjective Encounter Start Date: 04/01/19 Encounter Start Time: 10:15 Subjective: pt up in bed no complains - Objective Resuscitation Status - Order Detail: 03/26/19 00:22 Resuscitation Status Routine Resuscitation Status: FULL: Full Resuscitation Vital Signs & Weight: Vital Signs (12 hours) Temp Pulse Pulse Pulse Resp BP BP 04/01/19 12:58 92 20 04/01/19 11:09 96.9 F L 04/01/19 09:55 86 83 102/54 L 94/57 L 04/01/19 09:23 81 04/01/19 08:05 81 20 04/01/19 08:00 04/01/19 07:33 97.4 F L 04/01/19 03:59 99.0 F Pulse Ox Pulse Ox Pulse Ox 04/01/19 12:58 94 L 04/01/19 11:09 04/01/19 09:55 90 L 90 L 04/01/19 09:23 04/01/19 08:05 94 L 04/01/19 08:00 94 L 04/01/19 07:33 04/01/19 03:59 Weight Admit Weight 192 lb 4 oz Weight 189 lb 6.033 oz Most Recent Monitor Data Heart Rate from ECG 79 NIBP 102/54 NIBP BP-Mean 70 Respiration from ECG 20 SpO2 99 I&O: 03/31/19 04/01/19 04/02/19 06:59 06:59 06:59 Intake Total 1510 1260 Output Total 1325 1150 Balance 185 110 Result Diagrams: 03/31/19 06:11 03/31/19 06:11 Phys Exam - Physical Examination Neck: no nodes, no JVD, supple, full ROM Respiratory: no wheezing, no rales, no rhonchi, wheezing present, clear to auscultation bilateral Cardiovascular: RRR, no significant murmur, no rub, gallop, irregular Gastrointestinal: soft, non-tender, no distention, positive bowel sounds Musculoskeletal: no edema, pulses present, edema present Neurological: non-focal, normal sensation, moves all 4 limbs Dx/Plan (1) Acute respiratory failure with hypoxia Code(s): J96.01 - ACUTE RESPIRATORY FAILURE WITH HYPOXIA Status: Acute (2) Pneumonia Code(s): J18.9 - PNEUMONIA, UNSPECIFIED ORGANISM Status: Acute (3) Prolonged QT interval Code(s): R94.31 - ABNORMAL ELECTROCARDIOGRAM [ECG] [EKG] Status: Acute (4) Elevated troponin Code(s): R74.8 - ABNORMAL LEVELS OF OTHER SERUM ENZYMES Status: Acute - Plan pt up in bed feels better -: pt will need home oxygen -: pt will need further workup from cardiology * . Review of Systems - Review of Systems Respiratory: negative: Cough, Dry, Shortness of Breath, Hemoptysis, SOB with Excertion, Pleuritic Pain, Sputum, Wheezing Cardiovascular: negative: chest pain, palpitations, orthopnea, paroxysmal nocturnal dyspnea, edema, light headedness, other Gastrointestinal: negative: Nausea, Vomiting, Abdominal Pain, Diarrhea, Constipation, Melena, Hematochezia, Other - Medications/Allergies Allergies/Adverse Reactions: Allergies Allergy/AdvReac Type Severity Reaction Status Date / Time No Known Allergies Allergy Verified 05/05/16 10:21 Medications: Current Medications Acetaminophen (Tylenol) 650 mg PO Q4H PRN PRN Reason: Headache/Fever/Mild Pain (1-3) Albuterol/Ipratropium (Duoneb) 3 ml NEB [id number] [facility] Last Admin: 04/01/19 12:58 Dose: 3 ml Atorvastatin Calcium (Lipitor) 80 mg PO QPM [facility] Last Admin: 03/31/19 21:31 Dose: 80 mg Bisacodyl (Dulcolax) 10 mg [place] DAILYPRN PRN PRN Reason: Constipation Carvedilol (Coreg) 3.125 mg PO BID [facility] Last Admin: 04/01/19 09:22 Dose: 3.125 mg Dipyridamole/Aspirin (Aggrenox) 1 cap PO BID [facility] Last Admin: 04/01/19 09:22 Dose: 1 cap Doxycycline Hyclate (Vibramycin) 100 mg PO BID [facility] Stop: 04/04/19 09:01 Last Admin: 04/01/19 09:22 Dose: 100 mg Ezetimibe (Zetia) 10 mg PO QPM [facility] Last Admin: 03/31/19 21:31 Dose: 10 mg Enoxaparin Sodium (Lovenox) 90 mg SC 0900,2100 [facility] Last Admin: 04/01/19 09:22 Dose: 90 mg Famotidine (Pepcid) 20 mg PO BID [facility] Last Admin: 07/05/19 09:23 Dose: 20 mg Fish Oil (Fish Oil) [facility] [place] Last Admin: 04/01/19 09:23 Dose: 1,000 mg Guaifenesin/Dextromethorphan (Robitussin Dm) 15 ml PO Q4H PRN PRN Reason: Cough Iron/Minerals/Multivitamins (Theragran M) [facility] [place] Last Admin: 04/01/19 09:23 Dose: 1 tab Lisinopril (Zestril) 2.5 mg PO DAILY [facility] Last Admin: 04/01/19 09:23 Dose: 2.5 mg Prednisone (Prednisone) 20 mg PO QA-[facility] Last Admin: 04/01/19 09:21 Dose: 20 mg Senna/Docusate Sodium (Senokot S) 2 tab PO BID PRN PRN Reason: Constipation Sodium Chloride (Flush - Normal Saline) 10 ml IVF Q12HR [facility] Last Admin: 04/01/19 09:23 Dose: 10 ml Sodium Chloride (Flush - Normal Saline) 10 ml IVF PRN PRN PRN Reason: Saline Flush Last Admin: 03/26/19 18:17 Dose: 10 ml
--- NOTE | 2019-04-01 20:16 | PRG ---
DATE OF SERVICE: 04/01/2019 SUBJECTIVE: Aniket Lewis says he is feeling better. OBJECTIVE: GENERAL: He is in no distress. VITAL SIGNS: Heart rate is 87, respiratory rate is 17, and oximetry is 95%. He is afebrile. Blood pressure 10 o'clock this morning is 102/54. LUNGS: Remarkable for fine crackles at his bases. HEART: Regular rhythm. ABDOMEN: Soft. EXTREMITIES: Without edema. LABORATORY DATA: There is no new lab today. IMPRESSION: Pneumonia. PLAN: Continue antimicrobial therapy. We will continue to follow. Job ID: [id number]
[2019-04-01] MEDS: Ezetimibe 10 MG TAB PO SCH (21:24)
[2019-04-01] MEDS: Atorvastatin Calcium 40 MG TAB PO SCH (21:24)
[2019-04-02] MEDS: Carvedilol 3.125 MG TAB PO SCH ×2 (09:04→20:42)
[2019-04-02] MEDS: predniSONE 20 MG TAB PO SCH (09:04)
[2019-04-02] MEDS: Doxycycline 100 MG CAP PO SCH ×2 (09:04→20:42)
[2019-04-02] MEDS: Aggrenox 200-25mg CAP PO SCH ×2 (09:04→20:42)
[2019-04-02] MEDS: Fish Oil 1,000 MG CAP PO SCH (09:05)
[2019-04-02] MEDS: Multivitamin W/ Minerals 1 TAB PO SCH (09:05)
[2019-04-02] MEDS: Lisinopril 2.5 MG TAB PO SCH (09:05)
[2019-04-02] MEDS: Famotidine 20 MG TAB PO SCH ×2 (09:05→20:42)
[2019-04-02] MEDS: Enoxaparin Sodium 100 MG/ML SYRINGE SC SCH (09:06)
--- NOTE | 2019-04-02 15:18 | PRG ---
DATE OF SERVICE: 04/02/2019 SUBJECTIVE: Aniket Lewis says he is feeling better. OBJECTIVE: GENERAL: He is in no distress. He is sitting in bedside chair. VITAL SIGNS: Heart rate is 81, respiratory rate 17, oximetry is 93% on 2 L, blood pressure 112/76. LUNGS: Still remarkable for crackles at his lung bases. HEART: Regular rhythm. ABDOMEN: Soft. LABORATORY DATA: All cultures are negative. There is no new lab. IMPRESSION: Pneumonia, slowly improving. PLAN: We will continue to follow. He may be a candidate for discharge in 24 to 48 hours. Job ID: [id number]
--- NOTE | 2019-04-02 15:59 | PDOC.PN ---
- Subjective Encounter Start Date: 04/02/19 Encounter Start Time: 12:00 Subjective: pt up in chair no complains, his oxygen sat dropped - Objective Resuscitation Status - Order Detail: 03/26/19 00:22 Resuscitation Status Routine Resuscitation Status: FULL: Full Resuscitation Vital Signs & Weight: Vital Signs (12 hours) Temp Pulse Pulse Pulse Resp BP BP 04/02/19 15:26 96.6 F L 04/02/19 13:05 81 17 04/02/19 12:19 88 78 112/76 04/02/19 11:14 96.8 F L 04/02/19 09:05 85 102/67 04/02/19 08:00 04/02/19 07:34 97.6 F 04/02/19 06:41 04/02/19 06:39 85 21 H 04/02/19 05:19 04/02/19 04:32 04/02/19 04:12 BP Pulse Ox Pulse Ox Pulse Ox 04/02/19 15:26 04/02/19 13:05 93 L 04/02/19 12:19 118/57 L 94 L 92 L 04/02/19 11:14 04/02/19 09:05 04/02/19 08:00 94 L 04/02/19 07:34 04/02/19 06:41 95 04/02/19 06:39 95 04/02/19 05:19 95 04/02/19 04:32 95 04/02/19 04:12 92 L Weight Admit Weight 192 lb 4 oz Weight 188 lb 4.396 oz Most Recent Monitor Data Heart Rate from ECG 81 NIBP 112/76 NIBP BP-Mean 88 Respiration from ECG 21 SpO2 97 I&O: 04/01/19 04/02/19 04/03/19 06:59 06:59 06:59 Intake Total 1260 950 Output Total 1150 2450 Balance 110 -1500 Result Diagrams: 03/31/19 06:11 03/31/19 06:11 Phys Exam - Physical Examination Neck: no nodes, no JVD, supple, full ROM Respiratory: no wheezing, no rales, no rhonchi, wheezing present, clear to auscultation bilateral Cardiovascular: RRR, no significant murmur, no rub, gallop, irregular Gastrointestinal: soft, non-tender, no distention, positive bowel sounds Musculoskeletal: no edema, pulses present, edema present Dx/Plan (1) Acute respiratory failure with hypoxia Code(s): J96.01 - ACUTE RESPIRATORY FAILURE WITH HYPOXIA Status: Acute (2) Pneumonia Code(s): J18.9 - PNEUMONIA, UNSPECIFIED ORGANISM Status: Acute (3) Prolonged QT interval Code(s): R94.31 - ABNORMAL ELECTROCARDIOGRAM [ECG] [EKG] Status: Acute (4) Elevated troponin Code(s): R74.8 - ABNORMAL LEVELS OF OTHER SERUM ENZYMES Status: Acute - Plan will continue current tx, will discharge when ok with -: pulmoanry. will need home oxygen. will discontinue lovonox -: he will follow up with cardio as outpatient * . Review of Systems - Review of Systems Respiratory: negative: Cough, Dry, Shortness of Breath, Hemoptysis, SOB with Excertion, Pleuritic Pain, Sputum, Wheezing Cardiovascular: negative: chest pain, palpitations, orthopnea, paroxysmal nocturnal dyspnea, edema, light headedness, other Gastrointestinal: negative: Nausea, Vomiting, Abdominal Pain, Diarrhea, Constipation, Melena, Hematochezia, Other - Medications/Allergies Allergies/Adverse Reactions: Allergies Allergy/AdvReac Type Severity Reaction Status Date / Time No Known Allergies Allergy Verified 05/05/16 10:21 Medications: Current Medications Acetaminophen (Tylenol) 650 mg PO Q4H PRN PRN Reason: Headache/Fever/Mild Pain (1-3) Albuterol/Ipratropium (Duoneb) 3 ml NEB [id number] Last Admin: 04/02/19 13:05 Dose: 3 ml Atorvastatin Calcium (Lipitor) 80 mg PO QPM [facility] Last Admin: 04/01/19 21:24 Dose: 80 mg Bisacodyl (Dulcolax) 10 mg [place] DAILYPRN PRN PRN Reason: Constipation Carvedilol (Coreg) 3.125 mg PO BID [facility] Last Admin: 04/02/19 09:04 Dose: 3.125 mg Dipyridamole/Aspirin (Aggrenox) 1 cap PO BID [facility] Last Admin: 04/02/19 09:04 Dose: 1 cap Doxycycline Hyclate (Vibramycin) 100 mg PO BID [facility] Stop: 04/04/19 09:01 Last Admin: 04/02/19 09:04 Dose: 100 mg Ezetimibe (Zetia) 10 mg PO QPM [facility] Last Admin: 04/01/19 21:24 Dose: 10 mg Famotidine (Pepcid) 20 mg PO BID [facility] Last Admin: 04/02/19 09:05 Dose: 20 mg Fish Oil (Fish Oil) 1,000 mg PO QAM [facility] Last Admin: 04/02/19 09:05 Dose: 1,000 mg Guaifenesin/Dextromethorphan (Robitussin Dm) 15 ml PO Q4H PRN PRN Reason: Cough Iron/Minerals/Multivitamins (Theragran M) [facility] [place] Admin: 04/02/19 09:05 Dose: 1 tab Lisinopril (Zestril) 2.5 mg PO DAILY [facility] Last Admin: 04/02/19 09:05 Dose: 2.5 mg Prednisone (Prednisone) 20 mg PO QAM-[facility] Last Admin: 04/02/19 09:04 Dose: 20 mg Senna/Docusate Sodium (Senokot S) 2 tab PO BID PRN PRN Reason: Constipation Sodium Chloride (Flush - Normal Saline) 10 ml IVF Q12HR [facility] Last Admin: 04/02/19 09:07 Dose: 10 ml Sodium Chloride (Flush - Normal Saline) 10 ml IVF PRN PRN PRN Reason: Saline Flush Last Admin: 03/26/19 18:17 Dose: 10 ml
[2019-04-02] MEDS: Atorvastatin Calcium 40 MG TAB PO SCH (20:42)
[2019-04-02] MEDS: Ezetimibe 10 MG TAB PO SCH (20:42)
[2019-04-03 04:41] VITALS: BMI 26.5
[2019-04-03] MEDS: Lisinopril 2.5 MG TAB PO SCH (09:29)
[2019-04-03] MEDS: Fish Oil 1,000 MG CAP PO SCH (09:29)
[2019-04-03] MEDS: Doxycycline 100 MG CAP PO SCH ×2 (09:29→20:11)
[2019-04-03] MEDS: predniSONE 20 MG TAB PO SCH (09:30)
[2019-04-03] MEDS: Aggrenox 200-25mg CAP PO SCH ×2 (09:30→20:11)
[2019-04-03] MEDS: Multivitamin W/ Minerals 1 TAB PO SCH (09:30)
[2019-04-03] MEDS: Carvedilol 3.125 MG TAB PO SCH ×2 (09:30→20:11)
[2019-04-03] MEDS: Famotidine 20 MG TAB PO SCH ×2 (09:30→20:11)
--- NOTE | 2019-04-03 14:05 | PDOC.PN ---
- Subjective Encounter Start Date: 04/03/19 Encounter Start Time: 10:15 Subjective: pt up in chair sob - Objective Resuscitation Status - Order Detail: 03/26/19 00:22 Resuscitation Status Routine Resuscitation Status: FULL: Full Resuscitation Vital Signs & Weight: Vital Signs (12 hours) Temp Pulse Resp BP Pulse Ox 04/03/19 12:55 91 22 H 89 L 04/03/19 11:30 97.0 F L 04/03/19 09:29 71 120/70 04/03/19 08:00 94 L 04/03/19 07:34 97.4 F L 04/03/19 07:03 95 04/03/19 07:02 71 18 95 04/03/19 04:00 98.3 F Weight Admit Weight 192 lb 4 oz Weight 185 lb 6.54 oz Most Recent Monitor Data Heart Rate from ECG 90 NIBP 120/70 NIBP BP-Mean 86 Respiration from ECG 24 SpO2 92 I&O: 04/02/19 04/03/19 04/04/19 06:59 06:59 06:59 Intake Total 950 1040 Output Total 2450 1300 Balance -1500 -260 Result Diagrams: 03/31/19 06:11 03/31/19 06:11 Phys Exam - Physical Examination Neck: no nodes, no JVD, supple, full ROM Respiratory: no wheezing, no rales, no rhonchi, wheezing present, clear to auscultation bilateral Cardiovascular: RRR, no significant murmur, no rub, gallop, irregular Gastrointestinal: soft, non-tender, no distention, positive bowel sounds Dx/Plan (1) Acute respiratory failure with hypoxia Code(s): J96.01 - ACUTE RESPIRATORY FAILURE WITH HYPOXIA Status: Acute (2) Pneumonia Code(s): J18.9 - PNEUMONIA, UNSPECIFIED ORGANISM Status: Acute (3) Prolonged QT interval Code(s): R94.31 - ABNORMAL ELECTROCARDIOGRAM [ECG] [EKG] Status: Acute (4) Elevated troponin Code(s): R74.8 - ABNORMAL LEVELS OF OTHER SERUM ENZYMES Status: Acute - Plan I think pt can go home with oxygen but per pulmonary -: he needs to stay one more day. I think he is doing well and one additional -: day is not going to change anything. he will follow up with -: cardiology as outpatient * . Review of Systems - Review of Systems Respiratory: Shortness of Breath. negative: Cough, Dry, Hemoptysis, SOB with Excertion, Pleuritic Pain, Sputum, Wheezing Cardiovascular: negative: chest pain, palpitations, orthopnea, paroxysmal nocturnal dyspnea, edema, light headedness, other Gastrointestinal: negative: Nausea, Vomiting, Abdominal Pain, Diarrhea, Constipation, Melena, Hematochezia, Other - Medications/Allergies Allergies/Adverse Reactions: Allergies Allergy/AdvReac Type Severity Reaction Status Date / Time No Known Allergies Allergy Verified 05/05/16 10:21 Medications: Current Medications Acetaminophen (Tylenol) 650 mg PO Q4H PRN PRN Reason: Headache/Fever/Mild Pain (1-3) Albuterol/Ipratropium (Duoneb) 3 ml NEB [id number] [facility] Last Admin: 04/03/19 12:55 Dose: 3 ml Atorvastatin Calcium (Lipitor) 80 mg PO QPM [facility] Last Admin: 04/02/19 20:42 Dose: 80 mg Bisacodyl (Dulcolax) 10 mg [place] DAILYPRN PRN PRN Reason: Constipation Carvedilol (Coreg) 3.125 mg PO BID [facility] Last Admin: 04/03/19 09:30 Dose: 3.125 mg Dipyridamole/Aspirin (Aggrenox) 1 cap PO BID [facility] Last Admin: 04/03/19 09:30 Dose: 1 cap Doxycycline Hyclate (Vibramycin) 100 mg PO BID [facility] Stop: 04/04/19 09:01 Last Admin: 04/03/19 09:29 Dose: 100 mg Ezetimibe (Zetia) 10 mg PO QPM [facility] Last Admin: 04/02/19 20:42 Dose: 10 mg Famotidine (Pepcid) 20 mg PO BID [facility] Last Admin: 04/03/19 09:30 Dose: 20 mg Fish Oil (Fish Oil) 1,000 mg PO QAM [facility] Last Admin: 04/03/19 09:29 Dose: 1,000 mg Guaifenesin/Dextromethorphan (Robitussin Dm) 15 ml PO Q4H PRN PRN Reason: Cough Iron/Minerals/Multivitamins (Theragran M) 1 tab PO QAM [facility] Last Admin: 04/03/19 09:30 Dose: 1 tab Lisinopril (Zestril) 2.5 mg PO DAILY [facility] Last Admin: 04/03/19 09:29 Dose: 2.5 mg Prednisone (Prednisone) 20 mg PO QAM-WM [facility] Last Admin: 04/03/19 09:30 Dose: 20 mg Senna/Docusate Sodium (Senokot S) 2 tab PO BID PRN PRN Reason: Constipation Sodium Chloride (Flush - Normal Saline) 10 ml IVF Q12HR [facility] Last Admin: 04/03/19 09:30 Dose: 10 ml Sodium Chloride (Flush - Normal Saline) 10 ml IVF PRN PRN PRN Reason: Saline Flush Last Admin: 03/26/19 18:17 Dose: 10 ml
--- NOTE | 2019-04-03 15:36 | PRG ---
DATE OF SERVICE: SUBJECTIVE: Aniket Lewis says he is feeling better. He is ambulating more. He does not desaturate with exercise. OBJECTIVE: VITAL SIGNS: Heart rate is 91, respiratory rates in the 20s, oximetry is 89 on room air, blood pressure 124/65. LUNGS: Remarkable for fine crackles at his bases. HEART: Regular rhythm. ABDOMEN: Soft. EXTREMITIES: Without edema or asymmetry. LABORATORY DATA: No new lab. IMPRESSION: Pneumonia, slowly clinically improving. He is very patient, willing to stay in the hospital for another day or two, if it means, he does not have to go home with oxygen. Job ID: [id number]
[2019-04-03] MEDS: Atorvastatin Calcium 40 MG TAB PO SCH (20:11)
[2019-04-03] MEDS: Ezetimibe 10 MG TAB PO SCH (20:11)
[2019-04-04] MEDS: Fish Oil 1,000 MG CAP PO SCH (08:56)
[2019-04-04] MEDS: Doxycycline 100 MG CAP PO SCH (08:56)
[2019-04-04] MEDS: predniSONE 20 MG TAB PO SCH (08:56)
[2019-04-04] MEDS: Famotidine 20 MG TAB PO SCH (08:56)
[2019-04-04] MEDS: Aggrenox 200-25mg CAP PO SCH (08:56)
[2019-04-04] MEDS: Multivitamin W/ Minerals 1 TAB PO SCH (08:56)
[2019-04-04] MEDS: Lisinopril 2.5 MG TAB PO SCH (08:57)
[2019-04-04] MEDS: Carvedilol 3.125 MG TAB PO SCH (08:57)
--- NOTE | 2019-04-04 09:12 | PRG ---
DATE OF SERVICE: 04/04/2019 SUBJECTIVE: A 69-year-old gentleman, this morning, he is awake, alert, and responsive. OBJECTIVE: VITAL SIGNS: His sats are still apparently low on room air respirations 14, temperature 98, pulse 81, blood pressure 112/74. CHEST: Decreased breath sounds. No wheezing. CARDIAC: Normal S1 and S2. No gallops. ABDOMEN: No masses. Soft. NEUROLOGIC: Unremarkable. IMPRESSION: Bilateral interstitial pneumonia, culture negative, probably atypical. PLAN: He will be discharged home on low-flow O2, prednisone, and antibiotics, to follow up in the office in 2 weeks with a chest x-ray. Job ID: [id number]
--- NOTE | 2019-04-04 09:41 | RAD ---
Exam: Chest 2 views: HISTORY: Pneumonia COMPARISON: 03/29/2019 FINDINGS: Monitor leads overlie the chest. Postop midline sternotomy. Heart size is within normal limits. Fairly extensive bilateral interstitial, linear, and reticular nodular parenchymal changes noted thro ughout both lungs evidence for more the appearance of old chronic lung disease, with possible coexistent acute atypical pneumonia or pneumonitis. Biapical pleural thickening. Appearance is slight ly improved from prior study. IMPRESSION: Extensive interstitial and reticular nodular parenchymal changes slightly improved from prior study c oncerning for the possibility of underlying chronic interstitial lung disease with some component of acute atypical pneumonia or pneumonitis. Continued short-term follow-up
[2019-04-04 10:40] VITALS: TEMP 98.3
[2019-04-04 10:53] VITALS: BP 109/82
--- NOTE | 2019-04-05 12:54 | DIS ---
DATE OF ADMISSION: 03/26/2019 DATE OF DISCHARGE: 04/04/2019 DISCHARGE DIAGNOSES: As of the following; 1. Acute respiratory failure with hypoxia. 2. Pneumonia. 3. Prolonged QTc. 4. Elevated troponins. HOSPITAL COURSE: The patient is a 69-year-old male who initially presented to the hospital on 03/26, with complaints of shortness of breath and was found to be in acute respiratory failure with hypoxia and new onset CHF exacerbation and pneumonia. The patient initially was put on BiPAP and was transferred to [facility]. The patient at this time also was put on IV antibiotics and was given Lasix. He did have an echocardiogram which indicated an EF of 45% to 50% with right ventricular systolic pressure of 38 mmHg and also some mild enlargement of the right atrium and mild mitral regurgitation. The patient also had significantly elevated troponins, and at which time, he was put on Lovenox, and Cardiology was consulted. Cardiology's note recommended followup as an outpatient for further workup. The patient continued to improve throughout the whole hospital stay. He was discharged home with home oxygen and also will follow up with Pulmonology on outpatient basis. The patient was on 2 L of oxygen. He was able to ambulate. Denied any chest pain or shortness of breath. The patient was informed that he will need to follow up with Pulmonary, Cardiology, and also his primary care. MEDICATIONS: As of the following. He is going to be given steroids per Pulmonary and also antibiotics per Pulmonary. He is going to also continue; 1. Coreg 3.125 mg p.o. b.i.d. 2. Lisinopril 2.5 daily. 3. Aggrenox 1 cap p.o. b.i.d. 4. Atorvastatin 1 tablet p.o. q.p.m. 5. Ezetimibe 10 mg p.o. at bedtime. 6. Ambien 10 mg one p.o. at bedtime p.r.n. PHYSICAL EXAMINATION: VITAL SIGNS: Temperature 98.3, 92% on 2 L, 109/82, heart rate of 80. GENERAL: He is awake, alert, and oriented x3. Does not appear in distress. CV: S1 and S2, present. No murmurs, rubs, or gallops. ABDOMEN: Soft and nontender. Bowel sounds are present x2. Again, he will be discharged home. He will follow up with Primary and Pulmonology and also with Cardiology. Job ID: [id number]
== END 2019-04-04 13:01 | disposition home or self-care (01) | DRG 871 ==
LOC: ERS 21:34 → IMCU/EMU 03-26 00:08
PROVIDERS: ADMIT Internal Medicine; ATTEND Internal Medicine
PROC: 5A09457 Assistance with Respiratory Ventilation, 24-96 Consecutive Hours, Continuous Positive Airway Pressure (ICD-10-PCS; principal; 2019-03-26)
DX: A41.9 Sepsis, unspecified organism (principal); J18.9 Pneumonia, unspecified organism; I50.43 Acute on chronic combined systolic (congestive) and diastolic (congestive) heart failure; I21.A1 Myocardial infarction type 2; J96.01 Acute respiratory failure with hypoxia; I25.10 Atherosclerotic heart disease of native coronary artery without angina pectoris; E78.00 Pure hypercholesterolemia, unspecified; I73.9 Peripheral vascular disease, unspecified; I45.81 Long QT syndrome; I11.0 Hypertensive heart disease with heart failure; Z95.1 Presence of aortocoronary bypass graft; Z79.899 Other long term (current) drug therapy; Z87.891 Personal history of nicotine dependence
CPT/HCPCS: 36415; 71045; 71046; 80048; 80053; 80061; 80307; 83605; 83735; 83880; 84439; 84443; 84484; 85025; 87070; 87205; 93005; 93010; 93306; 93798; 94640; 94660; 94760; 96365; 96375; J0456; J0692; J1650; J1940; J1956; J2920; J3490; J7050; J7512; J7620

== ENCOUNTER 2019-04-28 14:34 | Outpatient (CLI) | payer MEDICARE, OTHER ==
--- NOTE | 2019-04-28 16:35 | RAD ---
RADIOGRAPH CHEST 2 VIEWS: Date: 04/28/19 Time: 2:46 p.m. HISTORY: 69-year-old male with pneumonia. COMPARISON: 04/04/19. FINDINGS: Again noted are the diffuse bilateral moderate to severe interstitial infiltrates. This is asymmetric ally worse involving the lower two thirds to three quarters of the left lung, and at the lateral aspe ct of the right mid lung zone. These areas of confluent alveolar infiltrates have worsened since . No cardiomegaly. Sternotomy wires. No pleural effusion or pneumothorax. Sternotomy wires and surg ical clips overlying the left cardiac shadow are again noted. IMPRESSION: 1. Superimposed on a background of diffuse bilateral chronic interstitial lung disease, there ar e regions of alveolar infiltrates which have been waxing and waning when compared to multiple prior c hest radiographs from 03/25/19 to 04/04/19. These could represent superimposed acute/recurrent bilateral pneumonias or pulmonary edema. 2. Status post coronary artery bypass graft surgery is evidence for coronary atherosclerotic dis ease. JN [] POS: [facility]
== END 2019-04-28 14:35 | disposition home or self-care (01) ==
LOC: RAD 14:34
PROVIDERS: ATTEND Internal Medicine Pulmonary Disease
DX: R06.00 Dyspnea, unspecified (principal); J84.9 Interstitial pulmonary disease, unspecified; I25.10 Atherosclerotic heart disease of native coronary artery without angina pectoris; Z95.1 Presence of aortocoronary bypass graft
CPT/HCPCS: 71046

== ENCOUNTER 2019-05-20 12:57 | Outpatient (CLI) | payer MEDICARE, OTHER ==
--- NOTE | 2019-05-20 13:45 | RAD ---
Exam: Chest 2 views COMPARISON: 04/28/2019, 04/04/2019, 03/29/2019 HISTORY: Dyspnea FINDINGS: Redemonstration of sternotomy wires and atherosclerotic aortic knob. Stable cardiac silhoue tte Persistent interstitial and alveolar opacities throughout the lung parenchyma. The degree of opacific ation is similar to the examinations performed in March 2019. No new areas of consolidation or opacification appreciated. No pleural effusion or pneumothorax IMPRESSION: Chronic changes in the lung parenchyma with overall stable opacification. When compared t o the most recent prior examination (04/28/2019), the degree of opacification has slightly decreased
== END 2019-05-20 12:58 | disposition home or self-care (01) ==
LOC: RAD 12:57
PROVIDERS: ATTEND Internal Medicine Pulmonary Disease
DX: R06.00 Dyspnea, unspecified (principal)
CPT/HCPCS: 71046

== ENCOUNTER 2019-07-21 12:34 | Outpatient (CLI) | payer MEDICARE, OTHER ==
--- NOTE | 2019-07-21 14:29 | RAD ---
2 VIEW CHEST: Date: 07/21/19 INDICATION: Dyspnea. COMPARISON: 05/20/19 and 04/04/19. FINDINGS/IMPRESSION: Borderline cardiomegaly with postop sternotomy change. Mild vascular congestion and diffuse interstit ial prominence, more pronounced on the left again noted. Interstitial congestion is stable when phill red to films dating back to 04/04/19. Findings may represent chronic interstitial edema or chronic in terstitial process superimposed on congestion. Chest findings appear stable. POS: [facility]
== END 2019-07-21 12:35 | disposition home or self-care (01) ==
LOC: RAD 12:34
PROVIDERS: ATTEND Internal Medicine Pulmonary Disease
DX: R06.00 Dyspnea, unspecified (principal); I87.8 Other specified disorders of veins; J84.89 Other specified interstitial pulmonary diseases; Z98.890 Other specified postprocedural states
CPT/HCPCS: 71046

== ENCOUNTER 2020-02-21 13:17 | Outpatient (CLI) | payer MEDICARE, OTHER ==
--- NOTE | 2020-02-21 15:37 | RAD ---
CHEST TWO VIEWS: 02/21/20 INDICATION: History of dyspnea. COMPARISON: Prior exam dated 07/21/19. FINDINGS: The prominent interstitial and ground glass air space prominent involving both lungs is stable appear ing. Cardiomegaly is stable appearing. No pleural effusion is noted. Post CABG change is similar appearing . No definite acute osseous abnormality is noted. There has been interval healed fracture involving t he proximal right humerus. There is a mild wedge compression fracture of approximately T7 which was l ikely present on the comparison examination in 2019. IMPRESSION: 1. Stable chronic lung changes and mild cardiomegaly. 2. Stable mild T7 wedge compression fracture. 3. Healed proximal right humerus fracture. POS: [facility]
== END 2020-02-21 13:18 | disposition home or self-care (01) ==
LOC: BICRAD 13:17
PROVIDERS: ATTEND Internal Medicine Pulmonary Disease
DX: R06.00 Dyspnea, unspecified (principal); I51.7 Cardiomegaly; S22.060A Wedge compression fracture of T7-T8 vertebra, initial encounter for closed fracture
CPT/HCPCS: 71046